=== PATIENT | female | born 1950 | race Caucasian/White ===

== ENCOUNTER 2019-12-29 23:14 | Inpatient (IN) | payer OTHER, BC ==
--- OUTSIDE RECORDS SUMMARY | 2019-12-29 23:39 | XMS ---
:1950 [facility] Support Name Relationship Address Phone RE Unavailable Unavailable Unavailable KYA OMALLEY [place] [address] FLACA PARIKH DAUGHTER [address] [place] [address] Re-disclosure Warning The records that you are about to access may contain information from federally- assisted alcohol or drug abuse programs. If such information is present, then the following federally mandated warning applies: This information has been disclosed to you from records protected by federal confidentiality rules (42 CFR part 2). The federal rules prohibit you from making any further disclosure of this information unless further disclosure is expressly permitted by the written consent of the person to whom it pertains or as otherwise permitted by 42 CFR part 2. A general authorization for the release of medical or other information is NOT sufficient for this purpose. The Federal rules restrict any use of the information to criminally investigate or prosecute any alcohol or drug abuse patient.The records that you are about to access may contain highly sensitive health information, the redisclosure of which is protected by Article 27-F of the [facility] Public Health law. If you continue you may haveaccess to information: Regarding HIV / AIDS; Provided by facilities licensed or operated by the [facility] Office of Mental Health; or Provided by the [facility] Office for People With Developmental Disabilities. If such information is present, then the following [facility] mandated warning applies: This information has been disclosed to you from confidential records which are protected by state law. State law prohibits you from making any further disclosure of this information without the specific written consent of the person to whom it pertains, or as otherwise permitted by law. Any unauthorized further disclosure in violation of state law may result in a fine or long-term sentence or both. A general authorization for the release of medical or other information is NOT sufficient authorization for further disclosure. Insurance Providers Payer name Policy type Policy ID Covered Covered constitution party's Policy P ming / Coverage constitution party ID relationship to [employer] type mason MEDICARE [id number] SP [id number] PPO [id number] SP [id number] MEDICARE [id number] SP [id number] A EMPIRE PLAN [id number] ([facility]) [place] MEDICARE [id number] 1 [id number] PART B [facility]
[2019-12-29] MEDS ORDERED: SODIUM CHLORIDE 1,000 ML IV SCH (23:45)
[2019-12-30 00:32] LABS: BASO % 0.5 % (0-2.0); EOS % 4.2 % (0-4.5); HEMATOCRIT 40.9 % (32.4-45.2); LYMPH % 34.3 % (8-40); MCH 31.5 pg (25.7-33.7); MCHC 34.2 g/dl (32.0-36.0); MEAN CELL VOLUME 92.2 fl (80-96); MEAN PLT VOLUME 10.1 fl (7.5-11.1); MONO % 9.6 % (3.8-10.2); NEUT % 51.4 % (42.8-82.8); PLATELET COUNT 202 K/MM3 (134-434); RBC 4.43 M/mm3 (3.60-5.2)
[2019-12-30 00:38] LABS: INR 1.03 (0.83-1.09); PROTHROMBIN TIME (PATIENT) 12.5 SEC (9.7-13.0)
[2019-12-30 00:41] LABS: ACTIVATED PTT 30.4 SECONDS (25.2-36.5)
[2019-12-30 01:02] LABS: ALBUMIN 3.7 g/dl (3.4-5.0); ALK PHOS 87 U/L (45-117); ANION GAP 7 MMOL/L (8-16); BILIRUBIN,TOTAL 0.3 mg/dL (0.2-1); BLOOD UREA NITROGEN 20.8 mg/dL (7-18); CALCIUM 9.4 mg/dL (8.5-10.1); CHLORIDE 99 mmol/L (98-107); CHOLESTEROL 151 mg/dL (50-200); CO2 29 mmol/L (21-32); CREATININE 1.5 mg/dL (0.55-1.3); HDL CHOLESTEROL 48 mg/dL (40-60); LDL CHOLESTEROL (ONLY SJRH) 72 mg/dL (5-100); SGOT/AST 30 U/L (15-37); SGPT/ALT 39 U/L (13-61); SODIUM 134 mmol/L (136-145); TRIGLYCERIDES 232 mg/dL (0-150)
--- NOTE | 2019-12-30 01:19 | PDOC ---
History of Present Illness - General Chief Complaint: Facial Droop Stated Complaint: SOB - History of Present Illness Initial Comments: 12/30/19 01:19 HPI: 69 y/o F with hx of uterine cancer s/p hysterectomy, CAD s/p 2 stents, HTN, HLD, DM presenting with facial droop. Patient reported transient episode of dizziness where she felt unstable on her feet around noon that self resolved; she denied fall, syncope, head trauma, change in vision. Around 8pm she reported worsneing SOB than her baseline SOB and noted a left sided facial droop. She was eventu ally brought to the ER for eval because family noted her speech was slurred. She denies any other weakness, chest pain, VILLAGOMEZ, abd pain, n/v, numbness/tingling, dysuria. She remains ambulatory. PMHx: as noted above ROS: as noted SHx: Denies tobacco use; no alcohol use; no rec drugs Allergies: NKDA ROS: GENERAL/CONSTITUTIONAL: No fever or chills. No weakness. HEAD, EYES, EARS, NOSE AND THROAT: No change in vision. No ear pain or discharge. No sore throat. CARDIOVASCULAR: No chest pain;+ shortness of breath RESPIRATORY: No cough, wheezing, or hemoptysis. GASTROINTESTINAL: No nausea, vomiting, diarrhea or constipation. GENITOURINARY: No dysuria, frequency, or change in urination. MUSCULOSKELETAL: No joint or muscle swelling or pain. No neck or back pain. SKIN: No rash NEUROLOGIC: No headache, loss of consciousness, or change in strength/sensation. ENDOCRINE: No increased thirst. No abnormal weight change HEMATOLOGIC/LYMPHATIC: No anemia, easy bleeding, or history of blood clots. ALLERGIC/IMMUNOLOGIC: No hives or skin allergy. PE: GENERAL: Awake, alert, and fully oriented, no acute distress HEAD: No signs of trauma, normocephalic, atraumatic, left nasolabial droop EYES: EOMI, sclera anicteric, conjunctiva clear ENT: Auricles normal inspection, hearing grossly normal, nares patent, oropharynx clear without exudates. Moist mucosa NECK: Normal ROM, no lymphadenopathy LUNGS: No increased work of breathing, symmetrical chest rise, clear to auscultation bilaterally, no wheezes, crackles or rhonchi HEART: Regular rate, regular rhythm, normal S1 and S2, no murmur, peripheral pulses 2+ and equal bilaterally. ABDOMEN: Soft, nondistended, nontender. No guarding, no rebound. No masses. No CVAT MUSCULOSKELETAL: FROM NEUROLOGICAL: Cranial nerves II through XII grossly intact. Normal speech, stable gait, left ankle dorsiflexion and plantarflexion 4/5str, 4/5 str on hip flexion SKIN: Warm, Dry, normal turgor, no rashes or lesions noted tPA Exclusion checklist 3-4.5h - Time Elapsed Date last known well: 12/29/19 Time last known well: 20:00 Elaspsed time: Day(s) and 5 Hour(s) and 57 Minutes - Thrombolytic Therapy Candidate Is patient eligible for thrombolytic therapy: No - Exclusion Criteria 3-4.5 hr SBP greater than 185 or DBP greater than 110mmHg despite tx: No Active internal bleeding: No Symptoms suggest subarachnoid hemorrhage: No - Relative Exclusion Criteria 3-4.5 hr Stroke severity too mild (non-disabling): Yes - Add'l Relative Exclusion 3-4.5 hr Taking an oral anticoagulant regardless of INR: Yes - Ineligibility reason(s) Reasons No tPA given: Outside of window - delayed arrival NIH Stroke Scale - Last Known Well Date/Time & Onset Date Last Known Well: 12/29/19 Time Last Known Well: 20:00 - Initial Evaluation Level of consciousness: Alert Ask patient the month and their age: Answers both correctly Ask patient to open & close eyes; make fist and let go: Obeys both correctly Best gaze (horizontal eye movement): Normal Visual field testing: No visual field loss Facial paresis (Show teeth/raise eyebrows/close eyes tight): Minor paralysis (flattened nasolabial fold, asymmetry on smiling) Motor Function: Left Arm: Normal Motor Function: Right Arm: Normal (extends arm 90 (or 45) degrees for 10 seconds without drift Motor Function: Left Leg: Drift Motor Function: Right Leg: Normal (extends leg 30 degrees for 5 seconds without drift) Limb Ataxia: No ataxia Sensory(Use pinprick test arms,legs,trunk,face/side to side): Normal Best language (Describe picture, name items, read sentences): No Aphasia Dysarthria (read several words): Normal articulation Extinction and Inattention: No abnormality - Total Score NIH Stroke Scale Score: 2 Past History - Medical History Allergies/Adverse Reactions: Allergies Allergy/AdvReac Type Severity Reaction Status Date / Time No Known Drug Allergies Allergy Verified 05/19/15 18:27 Home Medications: Ambulatory Orders Atorvastatin Ca [Lipitor] 40 mg PO DAILY 12/12/11 Diltiazem HCl [Cartia Xt] 240 mg PO DAILY 12/12/11 Glimepiride 4 mg PO DAILY 12/12/11 Levothyroxine [Synthroid -] 125 mcg PO DAILY 12/12/11 Apixaban [Eliquis] 5 mg PO BID 12/30/19 Dronedarone HCl [Multaq] 400 mg PO BID 12/30/19 Metoprolol Tartrate [Lopressor -] 50 mg PO HS 12/30/19 Sitagliptin Phosphate [Januvia] 100 mg PO HS 12/30/19 Anemia: No Asthma: No Cancer: Yes (UTERINE) Cardiac Disorders: Yes (CAD-STENTED X 2) CVA: No COPD: No CHF: No Dementia: No Diabetes: Yes (NIDDM DX 2006) GI Disorders: No Disorders: No HTN: Yes (DX 1999) Hypercholesterolemia: Yes (DX 1999) Liver Disease: No Seizures: No Thyroid Disease: Yes (HYPOTHYROID-DX 2006) - Surgical History Abdominal Surgery: No Appendectomy: No Cardiac Surgery: Yes (STENTS X 2-2006) Cholecystectomy: No Lung Surgery: No Neurologic Surgery: No Orthopedic Surgery: Yes (Bilateral Knee Arthroscopy) - Psycho-Social/Smoking History Smoking Status: No Smoking History: Former smoker Have you smoked in the past 12 months: No Number of Cigarettes Smoked Daily: 0 If you are a former smoker, when did you quit?: 1989 Information on smoking cessation initiated: No - Substance Abuse Hx (Audit-C & DAST Scrn) How often the patient has a drink containing alcohol: Never Score: In Men: 4 or > Positive; In Women: 3 or > Positive: 0 Screen Result (Pos requires Nsg. Audit-10AR): Negative In the last yr the pt used illegal drug/Rx for NonMed reason: No Score: Yes response is considered Positive: 0 Screen Result (Positive result requires Nsg. DAST-10): Negative *Physical Exam - Vital Signs Last Vital Signs Temp Pulse Resp BP Pulse Ox 97.8 F 80 19 128/92 97 12/29/19 23:15 12/29/19 23:15 12/29/19 23:15 12/29/19 23:15 12/30/19 00:43 ED Treatment Course - LABORATORY CBC & Chemistry Diagram: 12/30/19 00:03 12/30/19 00:03 - ADDITIONAL ORDERS Additional order review: Laboratory Results 12/30/19 12/30/19 12/30/19 00:03 00:03 00:03 PT with INR INR PTT (Actin FS) Sodium 134 L Potassium 5.0 Chloride 99 Carbon Dioxide 29 Anion Gap 7 L BUN 20.8 H Creatinine 1.5 H Est GFR (CKD-EPI)AfAm 40.49 Est GFR (CKD-EPI)NonAf 34.93 Calcium 9.4 Total Bilirubin 0.3 AST 30 ALT 39 Alkaline Phosphatase 87 Creatine Kinase 58 Troponin I < 0.02 Total Protein 7.0 Albumin 3.7 Triglycerides 232 H Cancelled Cholesterol 151 Cancelled Total LDL Cholesterol 72 Cancelled HDL Cholesterol 48 Cancelled Blood Type O POSITIVE Antibody Screen Negative 12/30/19 00:03 PT with INR 12.50 INR 1.03 PTT (Actin FS) 30.4 Sodium Potassium Chloride Carbon Dioxide Anion Gap BUN Creatinine Est GFR (CKD-EPI)AfAm Est GFR (CKD-EPI)NonAf Calcium Total Bilirubin AST ALT Alkaline Phosphatase Creatine Kinase Troponin I Total Protein Albumin Triglycerides Cholesterol Total LDL Cholesterol HDL Cholesterol Blood Type Antibody Screen 12/30/19 00:03 RBC 4.43 MCV 92.2 MCHC 34.2 RDW 13.0 MPV 10.1 D Neutrophils % 51.4 Lymphocytes % 34.3 Monocytes % 9.6 Eosinophils % 4.2 Basophils % 0.5 Medical Decision Making - Medical Decision Making 12/30/19 02:53 69 y/o F with hx of uterine cancer s/p hysterectomy, CAD s/p 2 stents, HTN, HLD, DM presenting with facial droop and slurred speech following gait instability earlier in the day. VSS, AF. PE with left nasolabial flattening and left hip flexion 4/5 str, ankle plantarflexion and dorsifelxion 4/5. NIHSS 2 -code villalobos order set -ivf -neuro consult -will admit 12/30/19 02:55 cr 1.5 ua notable for uti; will treat with ceftr neuro consult sent but no response yet pending admit for further workup Discharge - Discharge Information Problems reviewed: Yes Clinical Impression/Diagnosis: CVA (cerebral vascular accident), UTI (urinary tract infection) Condition: Guarded - Admission Yes - Follow up/Referral Referrals: Maximo Rios MD [Primary Care Provider] - - Patient Discharge Instructions - Post Discharge Activity
[2019-12-30 01:24] LABS: GLUCOSE,RANDOM 433 mg/dL (74-106)
[2019-12-30 01:52] LABS: EPI CELLS 1 /uL (0-25.1); HYALINE CASTS 0 /uL (0-3.1); URINE APPEARANCE CLEAR; URINE BACTERIA >9,000 /uL (0-1359); URINE BILIRUBIN NEGATIVE (NEGATIVE); URINE COLOR YELLOW; URINE GLUCOSE (UA) 3+ (NEGATIVE); URINE KETONE NEGATIVE (NEGATIVE); URINE LEUK ESTERASE 1+ (NEGATIVE); URINE NITRITE POSITIVE (NEGATIVE); URINE PROTEIN NEGATIVE (NEGATIVE); URINE RBC 4 /uL (0-23.9); URINE UROBILINOGEN 0.2 mg/dL (0.2-1.0); URINE WBC 343 /uL (0-25.8)
[2019-12-30] MEDS ORDERED: CEFTRIAXONE 1 GM in DEXTROSE 5%-WATER - 100 ML IVPB ONE (01:53)
[2019-12-30] MEDS ORDERED: CEFTRIAXONE 1 GM/50 ML BAG ONE ×2 (02:33→09:20)
--- NOTE | 2019-12-30 02:54 | PDOC ---
Attending Attestation - Resident Resident Name: Bessy Hatch - ED Attending Attestation I have performed the following: I have examined & evaluated the patient, The case was reviewed & discussed with the resident, I agree w/resident's findings & plan, Exceptions are as noted - HPI HPI: 12/30/19 02:48 69F pmh DM, HTN, HLD, CAD s/p stent, chf, AFib on eliquis here after noticing facial droop, speech and gait abnormalities. Pt was in her USOH until noon when she had a self-limited episode of gait instability. Also, at approximately 8pm tonight, she noted a change in her voice but was unconcerned with what she saw when she checked herself in the mirror for droop. At 9pm when her daughter arrived home, daughter noted L sided droop and a change in voice, ems was called. - Physicial Exam PE: 12/30/19 02:50 Agree with documented exam - Medical Decision Making 12/30/19 02:52 Focal findings concerning for CVA, code hernandez called CT w/o acute findings Questionable timing for symptom onset, on Eliquis, not tpa candidate f/u labs, cxr, ekg admit for complete stroke eval Discharge - Discharge Information Problems reviewed: Yes Clinical Impression/Diagnosis: CVA (cerebral vascular accident), UTI (urinary tract infection) Condition: Guarded - Follow up/Referral Referrals: Maximo Rios MD [Primary Care Provider] - - Patient Discharge Instructions - Post Discharge Activity
--- NOTE | 2019-12-30 03:38 | PN ---
Teaching Attending Note Name of Resident: Debbie Silvestre ATTENDING PHYSICIAN STATEMENT I saw and evaluated the patient. I reviewed the resident's note and discussed the case with the resident. I agree with the resident's findings and plan as documented. SUBJECTIVE: Patient is 69 year old man with a PMH of Afib (on Eliquis), Uterine cancer (s/p hysterectomy), Hypothyroidism, CAD (s/p 2 stents), HTN, HLD and NIDDM presenting with facial droop. Patient reported transient episode of dizziness where she felt unstable on her feet around noon that self resolved. She report worsneing SOB around 8 pm more than her baseline SOB and noted a left sided facial droop. She was eventually brought to the ER for evaluation because family noted her sp eech was slurred. Patient denies fall, syncope, head trauma, change in vision, chest pain, abdominal pain, headache, palpitations, fever, chills, nausea, vomiting, diarrhea, constipation, dysuria, frequency, urgency, melena, hematochezia or hematuria. She remains ambulatory. Former smoker. Denies alcohol, tobacco or illicit drug use. No sick contacts or recent travels. 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 Patient has a family history of heart disease in her brother. OBJECTIVE: Alert Vital Signs Period Temp Pulse Resp BP Sys/Strauss Pulse Ox Last 24 Hr 97.8 F 80 19 128/92 97-97 HEENT: No Jaundice, eye redness or discharge, PERRLA, EOMI. Left facial droop; dysarthric; Normocephalic, atraumatic. External ears are normal and hearing is grossly intact. No nasal discharge. Neck: Supple, nontender. No palpable adenopathy or thyromegaly. No JVD Chest: Good effort. Clear to auscultation and percussion. Heart: Irregularly irregular. No S3, rub or murmur Abdomen: Not distended, soft, nontender and no HSM. No rebound or guarding. Normal bowel sounds. Ext: Peripheral pulses intact. No leg edema. Skin: Warm and dry. No petechiae, rash or ecchymosis. Neuro: Alert. Oriented x3. Left facial droop; dysarthria; Sensation grossly intact in all four extremities and DTR are symmetric. Psych: Appropriate mood and affect. Good insight. Home Medications Medication Instructions Recorded Atorvastatin Ca [Lipitor] 40 mg PO HS 12/12/11 Diltiazem HCl [Cartia Xt] 120 mg PO DAILY 12/12/11 Glimepiride 10 mg PO BID 12/12/11 Levothyroxine [Synthroid -] 125 mcg PO DAILY 12/12/11 Apixaban [Eliquis] 5 mg PO BID 12/30/19 Dronedarone HCl [Multaq] 400 mg PO BID 12/30/19 Metoprolol Tartrate [Lopressor -] 50 mg PO HS 12/30/19 Sitagliptin Phosphate [Januvia] 100 mg PO HS 12/30/19 Abnormal Lab Results 12/30/19 12/30/19 00:03 01:05 Sodium 134 L Anion Gap 7 L BUN 20.8 H Creatinine 1.5 H Random Glucose 433 H* Triglycerides 232 H Urine Glucose (UA) 3+ H Urine Nitrite Positive H Ur Leukocyte Esterase 1+ H Current Medications Generic Name Dose Route Start Last Admin Trade Name Freq PRN Reason Stop Dose Admin Apixaban 5 mg 12/30/19 04:59 Eliquis - PO 12/30/19 05:00 ONCE ONE Apixaban 5 mg 12/30/19 22:00 Eliquis - PO BID [facility] Aspirin 325 mg 12/30/19 05:09 Asa - PO 12/30/19 05:10 ONCE ONE Atorvastatin Calcium 80 mg 12/30/19 22:00 Lipitor - PO HS [facility] Dronedarone 400 mg 12/30/19 10:00 Multaq - PO BID [facility] Sodium Chloride 1,000 mls @ 50 mls/hr 12/30/19 04:55 Normal Saline - IV ASDIR [facility] ASSESSMENT AND PLAN: 1. UTI/Rule out CVA - Sepsis workup done and on IV Ceftriaxone and IV NS. NIHSS score was 2. CXR shows cardiomegaly with left humerus hardware. No evidence of acute intracranial pathology on noncontrast head CT scan. Outside of window for tPA and on Eliquis. EKG shows Afib at 65/minute, premature SVCs and QTc 453, flat T waves in aVL, V2, V3 and T wave inversion in V1 with no significant acute ischemic ST changes. T wave flattening is new compared to prior EKG. Initial troponin is negative. Will admit to telemetry, repeat troponin & EKG, get ECHO, TSH, carotid doppler, increase Lipitor to 80 mg qd, continue Aspirin, get brain MRI, do speech and swallow evaluation, neurochecks and implement fall/aspiration/seizure precautions. Consult PT/Neurology. Hyponatremia likely partly due to hyperglycemia. Will limit free water intake and correct hyperglycemia. Viral testing for COVID-19 ordered and patient placed on airborne, droplet and contact isolation. Will continue comprehensive care for all of patients comorbid con ditions. 2. Uncontrolled DM For now, we will hold the home diabetes drugs and implement sliding scale insulin regimen. Provide comprehensive diabetes care with patient teaching and counseling about the importance of adherence to prescribed diabetes regimen, euglycemia, eye care and foot care. 3. OTILIO Likely due to dehydration. Will get kidney sonogram, urine protein/creatinine ratio, hydrate gently, monitor urine output and consult Nephrology. Should be on an ACEI or ARB. Avoid nephrotoxic agents such as NSAIDS, aminoglycosides, contrast dyes and certain Alternative medicine products. 4. Obesity Counseled on the risks associated with obesity. Will provide patient all the necessary assistance, counseling and positive reinforcement to facilitate weight loss. Consult rug setter velvet. 5. Hypertension Will allow permissive hypertension for 24 to 48 hours. Will restart suitable outpatient antihypertensive drugs when clinically appropriate. Subsequently, will revise regimen to ensure [id number] excellent BP control. Patient counseled on the injurious effects of uncontrolled hypertension. Nonpharmacologic measures to control hypertension like weight loss, salt restriction and exercise stressed. Importance of adherence to treatment regimen and attainment of normotension emphasized. 6. DVT prophylaxis - Continue Eliquis. 7. Advance directives - Full code
[2019-12-30] MEDS ORDERED: APIXABAN 5 MG TABLET PO SCH (04:57)
[2019-12-30] MEDS ORDERED: APIXABAN 5 MG TABLET PO ONE (04:59)
[2019-12-30] MEDS ORDERED: ASPIRIN 81 MG CHEWABLE TABLETS PO SCH (05:06)
[2019-12-30] MEDS ORDERED: ASPIRIN 81 MG CHEWABLE TABLETS PO ONE (05:09)
--- NOTE | 2019-12-30 05:37 | HP ---
CHIEF COMPLAINT: facial droop HISTORY OF PRESENT ILLNESS: Nayana Siddiqui is a 69 year old woman with PMH afib on eliquis 5 bid, CAD s/p 2 stents, hypertension, hyperlipidemia, diabetes, hypothyroidism, who is presenting with facial droop and difficulty speaking. She states that symptoms began yesterday at 11 am while she was grocery shopping. States she was walking down the aisles and noticed her body drifting to the left side. She also felt dizzy, and lightheaded, and immediately left the store to go home and rest. Symptoms resolved while she was at home. However, at approx 8 pm, she noticed she was having some trouble speaking. Her daughter arrived home from work at 9 pm and immediately noticed her mom slurring words and with a left facial droop. She denies prior TIA, CVA. States she has been compliant with all medications. Denies fever, chills, headache, chest pain, palpitations, nausea, vomiting, dysuria, diarrhea, constipation. ER course was notable for: - T 98.3, HR 80, BP 155/80, RR 18, O2 sat 97% on room air - Labs notable for Creatinine 1.5, BUN 20.8, Glucose 433, triglycerides 232 - CT head negative for acute pathology - UA with 3+ glucose, positive nitrite, positive leuk esterase, >9000 bacteria PAST MEDICAL HISTORY: Afib on Eliquis 5 mg BID CAD s/p stent placement 10 y ago Hypertension Hyperlipidemia NIDDM Hypothyroidism Uterine cancer s/p hysterectomy PAST SURGICAL HISTORY: Meniscal repair b/l L shoulder reconstruction Hysterectomy Social History: Smoking: prior smoker ~age [age] Alcohol: no Drugs: no Allergies No Known Drug Allergies Allergy (Verified 05/19/15 18:27) HOME MEDICATIONS: Home Medications Medication Instructions Recorded Atorvastatin Ca [Lipitor] 40 mg PO HS 12/12/11 Diltiazem HCl [Cartia Xt] 120 mg PO DAILY 12/12/11 Glimepiride 10 mg PO BID 12/12/11 Levothyroxine [Synthroid -] 125 mcg PO DAILY 12/12/11 Apixaban [Eliquis] 5 mg PO BID 12/30/19 Dronedarone HCl [Multaq] 400 mg PO BID 12/30/19 Metoprolol Tartrate [Lopressor -] 50 mg PO HS 12/30/19 Sitagliptin Phosphate [Januvia] 100 mg PO HS 12/30/19 REVIEW OF SYSTEMS SEE HPI PHYSICAL EXAMINATION Vital Signs - 24 hr 12/29/19 12/30/19 23:15 00:43 Temperature 97.8 F Pulse Rate 80 Respiratory 19 Rate Blood Pressure 128/92 O2 Sat by Pulse 97 97 Oximetry (%) GENERAL: Awake, alert, and fully oriented, in no acute distress. HEAD: Normal with no signs of trauma. EYES: Pupils equal, round and reactive to light, extraocular movements intact EARS, NOSE, THROAT: Ears normal, nares patent, oropharynx clear without exudates. Moist mucous membranes. NECK: Normal range of motion, supple without lymphadenopathy LUNGS: Breath sounds equal, clear to auscultation bilaterally. HEART: Irregularly irregular rhythm, normal rate, no murmur ABDOMEN: Soft, nontender, not distended, normoactive bowel sounds, no guarding, no rebound, no masses. MUSCULOSKELETAL: Normal range of motion at all joints. No bony deformities or tenderness. No CVA tenderness. UPPER EXTREMITIES: 2+ pulses, warm, well-perfused. No cyanosis. No clubbing. No peripheral edema. 4/5 strength b/l LOWER EXTREMITIES: 2+ pulses, warm, well-perfused. No calf tenderness. No peripheral edema. 4/5 strength b/l NEUROLOGICAL: Alert and oriented to person, place, time. Positive for dysarthria with asymmetrical face (L sided facial droop with flattening of the nasolabial fold on the left) PSYCHIATRIC: Cooperative. Good eye contact. Appropriate mood and affect. Laboratory Results - last 24 hr 12/30/19 12/30/19 12/30/19 00:03 00:03 00:03 WBC 8.0 RBC 4.43 Hgb 14.0 Hct 40.9 MCV 92.2 MCH 31.5 MCHC 34.2 RDW 13.0 Plt Count 202 D MPV 10.1 D Absolute Neuts (auto) 4.1 Neutrophils % 51.4 Lymphocytes % 34.3 Monocytes % 9.6 Eosinophils % 4.2 Basophils % 0.5 Nucleated RBC % 0 PT with INR 12.50 INR 1.03 PTT (Actin FS) 30.4 Sodium Potassium Chloride Carbon Dioxide Anion Gap BUN Creatinine Est GFR (CKD-EPI)AfAm Est GFR (CKD-EPI)NonAf POC Glucometer Random Glucose Calcium Total Bilirubin AST ALT Alkaline Phosphatase Creatine Kinase Troponin I Total Protein Albumin Triglycerides Cancelled Cholesterol Cancelled Total LDL Cholesterol Cancelled HDL Cholesterol Cancelled Urine Color Urine Appearance Urine pH Ur Specific [place] Urine Protein Urine Glucose (UA) Urine Ketones Urine Blood Urine Nitrite Urine Bilirubin Urine Urobilinogen Ur Leukocyte Esterase Urine WBC (Auto) Urine RBC (Auto) Urine Casts (Auto) U Epithel Cells (Auto) Urine Bacteria (Auto) Blood Type Antibody Screen 12/30/19 12/30/19 12/30/19 00:03 00:03 01:05 WBC RBC Hgb Hct MCV MCH MCHC RDW Plt Count MPV Absolute Neuts (auto) Neutrophils % Lymphocytes % Monocytes % Eosinophils % Basophils % Nucleated RBC % PT with INR INR PTT (Actin FS) Sodium 134 L Potassium 5.0 Chloride 99 Carbon Dioxide 29 Anion Gap 7 L BUN 20.8 H Creatinine 1.5 H Est GFR (CKD-EPI)AfAm 40.49 Est GFR (CKD-EPI)NonAf 34.93 POC Glucometer Random Glucose 433 H* Calcium 9.4 Total Bilirubin 0.3 AST 30 ALT 39 Alkaline Phosphatase 87 Creatine Kinase 58 Troponin I < 0.02 Total Protein 7.0 Albumin 3.7 Triglycerides 232 H Cholesterol 151 Total LDL Cholesterol 72 HDL Cholesterol 48 Urine Color Yellow Urine Appearance Clear Urine pH 6.0 Ur Specific [place] 1.014 Urine Protein Negative Urine Glucose (UA) 3+ H Urine Ketones Negative Urine Blood Negative Urine Nitrite Positive H Urine Bilirubin Negative Urine Urobilinogen 0.2 Ur Leukocyte Esterase 1+ H Urine WBC (Auto) 343 Urine RBC (Auto) 4 Urine Casts (Auto) 0 U Epithel Cells (Auto) 1 Urine Bacteria (Auto) >9,000 Blood Type O POSITIVE Antibody Screen Negative 12/30/19 03:28 WBC RBC Hgb Hct MCV MCH MCHC RDW Plt Count MPV Absolute Neuts (auto) Neutrophils % Lymphocytes % Monocytes % Eosinophils % Basophils % Nucleated RBC % PT with INR INR PTT (Actin FS) Sodium Potassium Chloride Carbon Dioxide Anion Gap BUN Creatinine Est GFR (CKD-EPI)AfAm Est GFR (CKD-EPI)NonAf POC Glucometer 285 Random Glucose Calcium Total Bilirubin AST ALT Alkaline Phosphatase Creatine Kinase Troponin I Total Protein Albumin Triglycerides Cholesterol Total LDL Cholesterol HDL Cholesterol Urine Color Urine Appearance Urine pH Ur Specific [place] Urine Protein Urine Glucose (UA) Urine Ketones Urine Blood Urine Nitrite Urine Bilirubin Urine Urobilinogen Ur Leukocyte Esterase Urine WBC (Auto) Urine RBC (Auto) Urine Casts (Auto) U Epithel Cells (Auto) Urine Bacteria (Auto) Blood Type Antibody Screen ASSESSMENT/PLAN: Nayana Siddiqui is a 69 year old woman with PMH afib on eliquis 5 bid, CAD s/p 2 stents, hypertension, hyperlipidemia, diabetes, hypothyroidism, who is presenting with facial droop and difficulty speaking with strong suspicion of CVA #Suspected CVA - Last known well: 11 am 12/29/19 - NIHSS stroke scale 2 on admission (facial palsy and dysarthria) - CT head negative for acute pathology - MRI w/out contrast stat - Speech/swallow eval - Lipitor 80 daily - Aspirin 325 one time does - F/u ECHO - F/u TSH - Neuro consult - PT consult #OTILIO - bun 20.8, cr 1.5 - Likely secondary to polydipsia and polyuria in the setting of hyperglycemia - Continue iv fluids - F/u urine protein:cr ratio #UTI - F/u urine culture - Continue Rocephin #Afib - Continue home Eliquis 5 mg bid - Continue home Dronedarone 400 bid - F/u EKG; new t wave flattening detected on first ekg - F/u cardiology recommendations #Hyperglycemia with NIDDM - Blood sugar 433 on admission - Continue fluids 0.9 NS 50 mls/hr - BGM - SSI - F/u urine protein creatinine ratio - F/u HbA1c - Consider addition of LISA/ARB in this diabetic pt upon discharge DVT prophylaxis: Eliquis 5 mg bid FEN - 0.9 NS @ 50 mls/hr - F/u am labs, mag, phos - Diet pending swallow eval Dispo: Tele Family Medical History Family History: As Documented Visit type - Medication Review Med list reviewed for High Risk Meds patients 65 and older: Yes - Emergency Visit Emergency Visit: Yes Care time: The patient presented to the Emergency Department on the above date and was hospitalized for further evaluation of their emergent condition. - New Patient This patient is new to me today: Yes Date on this admission: 12/30/19 - Critical Care Critical Care patient: No ATTENDING PHYSICIAN STATEMENT I saw and evaluated the patient. I reviewed the resident's note and discussed the case with the resident. I agree with the resident's findings and plan as documented. SUBJECTIVE: OBJECTIVE: ASSESSMENT AND PLAN:
[2019-12-30] MEDS ORDERED: ASPIRIN 325 MG ENTERIC COATED TABLET (FP) ONE (06:00)
[2019-12-30] MEDS ORDERED: APIXABAN 5 MG TABLET ONE (06:00)
[2019-12-30] MEDS ORDERED: INSULIN SLIDING SCALE (NOVOLOG) 1 VIAL SQ ONE (06:00)
[2019-12-30] MEDS: INSULIN SLIDING SCALE (NOVOLOG) 1 VIAL SQ SCH ×5 (06:13→21:44)
[2019-12-30] MEDS: SODIUM CHLORIDE 1,000 ML IV SCH (06:13)
[2019-12-30 06:42] LABS: BASO % 0.6 % (0-2.0); EOS % 3.7 % (0-4.5); HEMATOCRIT 39.1 % (32.4-45.2); HEMOGLOBIN 13.2 GM/dL (10.7-15.3); LYMPH % 31.7 % (8-40); MCH 30.6 pg (25.7-33.7); MCHC 33.7 g/dl (32.0-36.0); MEAN CELL VOLUME 90.8 fl (80-96); MEAN PLT VOLUME 9.6 fl (7.5-11.1); MONO % 9.9 % (3.8-10.2); NEUT % 54.1 % (42.8-82.8); PLATELET COUNT 197 K/MM3 (134-434); RBC 4.31 M/mm3 (3.60-5.2); RDW 12.9 % (11.6-15.6); WHITE BLOOD COUNT 7.5 K/mm3 (4.0-10.0)
[2019-12-30 07:17] LABS: ALBUMIN 3.5 g/dl (3.4-5.0); BILIRUBIN,TOTAL 0.8 mg/dL (0.2-1); BLOOD UREA NITROGEN 17.2 mg/dL (7-18); CREATININE 1.2 mg/dL (0.55-1.3); PHOSPHOROUS 3.3 mg/dL (2.5-4.9); POTASSIUM 4.5 mmol/L (3.5-5.1); TOT PROT 6.8 g/dl (6.4-8.2)
[2019-12-30 08:20] LABS: CREATININE, URINE RANDOM < 13.0 mg/dL (30-150)
--- OUTSIDE RECORDS SUMMARY | 2019-12-30 08:37 | XMS ---
:1950 Author Organization [facility] Support Name Relationship Address Phone RE, RETIRED Unavailable Unavailable Unavailable RE Unavailable Unavailable Unavailable KYA [place] [address] [address] FLACA PARIKH DAUGHTER [address] [phone] [place] [address] Re-disclosure Warning The records that you are [...] is protected by Article 27-F of the [facility] Public Health law. If you continue you may haveaccess to information: Regarding HIV / AIDS; Provided by facilities licensed or operated by the [facility] Office of Mental Health; or Provided by the [facility] Office for People With Developmental Disabilities. If such information is present, then the following [facility] mandated warning applies: This information has [...] law may result in a fine or longterm sentence or both. A general authorization for the release of medical or other information is NOT sufficient authorization for further disclosure. Insurance Providers Payer name Policy type Policy ID Covered Covered libertarian's Policy P ming / Coverage libertarian ID relationship to [employer] type [facility] MEDICARE [id number] SP [id number] PPO [id number] MEDICARE [id number] SP [id number] A EMPIRE PLAN [id number] ([facility]) [place] MEDICARE [id number] 1 [id number] PART B [facility]
--- NOTE | 2019-12-30 08:56 | CON.CARD ---
Consult Consult Specialty:: Cardiology Referred by:: Hospitalist Medicine Reason for Consultation:: Acute stroke - History of Present Illness Chief Complaint: Dysarthria and left facial droop History of Present Illness: 69-year-old female with known history of coronary artery disease status post percutaneous coronary intervention stenting ([facility]O-[facility]AD 2004 report of intervention not available) negative pharmacologic Dipyridamole myocardial perfusion imaging study for myocardial ischemia/May 20, 2015 negative myocardial perfusion imaging study for myocardial ischemia/May 13, 2017negative pharmacologic Lexiscan myocardial perfusion imaging study for myocardial ischemia/August 30, 2019angina pectoris, diastolic/systolic left ventricular dysfunction with class 0 [place] Heart [employer] classification left ventricular failure (LVEF between 60-65% on echocardiography performed August 24, 2019), paroxysmal atrial fibrillation [id number] score of 5 on anticoagulation therapy with DOACs/Eliquis- antiarrhythmic therapy with Multaq- recurrent asymptomatic arrhythmia noted on extended ambulatory machine icer performed August 30, 2018-sinus bradycardia/asymptomatic, mitral valve regurgitation mild to moderate in severity on echocardiography performed May 31, 2018/mild in severity on echocardiography performed August 24, 2019, heart murmur related to aortic valve sclerosis with no evidence of aortic valve stenosis on echocardiography performed April 30, 2017/May 31, 2018/August 24, 2019, tricuspid valve regurgitation mild in severity with calculated RVSP of 31.9 mmHg on echocardiography performed May 21, 2015/RVSP of 33 mmHg on echocardiography performed May 31, 2018/RVSP of 26 mmHg on echocardiography performed August 24, 2019, hypertensive cardiovascular disease/labile blood pres sure, suo-cevuguc-ntoudmams diabetes mellitus, hypercholesterolemia, carotid atherosclerosis mild in severity on carotid Doppler study performed April 22, 2017, peripheral vascular disease insignificant on lower extremity segmental pressures/PVR study performed May 06, 2017, hypothyroidism, chronic kidney disease and degenerative joint disease who was last evaluated in the officeS2019. Since the above evaluation, she presented with left facial droop, dysarthria and transient episode of disequilibrium w/o other focal neuro deficits since resolved. She report worsneing SOB around 8 pm more than her baseline SOB, she reports compliance with Eliquis. Patient denies fall, syncope, head trauma, change in vision, chest pain, abdominal pain, headache, palpitations, fever, chills, nausea, vomiting, diarrhea, constipation, dysuria, frequency, urgency, melena, hematochezia, hematuria, orthopnea, PND or LE edema. Former smoker. Denies alcohol, tobacco or illicit drug use. No sick contacts or recent travels. 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 Patient has a family history of heart disease in her brother. 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 [employer] Home Medications - Allergies Allergies/Adverse Reactions: Allergies Allergy/AdvReac Type Severity Reaction Status Date / Time No Known Drug Allergies Allergy Verified 05/19/15 18:27 - Home Medications Home Medications: Ambulatory Orders Atorvastatin Ca [Lipitor] 40 mg PO HS 12/12/11 Diltiazem HCl [Cartia Xt] 120 mg PO DAILY 12/12/11 Glimepiride 10 mg PO BID 12/12/11 Levothyroxine [Synthroid -] 125 mcg PO DAILY 12/12/11 Apixaban [Eliquis] 5 mg PO BID 12/30/19 Dronedarone HCl [Multaq] 400 mg PO BID 12/30/19 Metoprolol Tartrate [Lopressor -] 50 mg PO HS 12/30/19 Sitagliptin Phosphate [Januvia] 100 mg PO HS 12/30/19 Review of Systems - Review of Systems Neurological: reports: Change in Speech, Dizziness, Incoordination Vital Signs: Vital Signs Temperature 98.0 F 12/30/19 05:39 Pulse Rate 85 12/30/19 05:39 Respiratory Rate 19 12/29/19 23:15 Blood Pressure 160/85 12/30/19 05:39 O2 Sat by Pulse Oximetry (%) 99 12/30/19 08:27 Constitutional: Yes: No Distress, Calm HENT: Yes: Other (Left facial droop) Neck: Yes: Supple Respiratory: Yes: Regular, CTA Bilaterally Gastrointestinal: Yes: Normal Bowel Sounds, Soft Cardiovascular: Yes: Pulse Irregular JVD: No Carotid Bruit: No Heart Sounds: Yes: S1, S2 Murmur: Yes: Systolic Murmur, Grade 1 Edema: No - Other Data Labs, Other Data: CBC, BMP 12/30/19 05:40 12/30/19 05:40 INR, PTT INR 1.03 (0.83-1.09) 12/30/19 00:03 Troponin, BNP 12/30/19 00:03 Troponin I < 0.02 Troponin, BNP 12/30/19 00:03 Troponin I < 0.02 PAF @ 90 -> NSR nonspec ST-T changes Echo: Report Reviewed Ejection Fraction %: LVEF > or = 40 % Imaging - Results Chest X-ray: Report Reviewed (NAD) MRI: Report Reviewed Problem List - Problems (1) CVA (cerebral vascular accident) Code(s): I63.9 - CEREBRAL INFARCTION, UNSPECIFIED Qualifiers: CVA mechanism: unspecified Qualified Code(s): I63.9 - Cerebral infarction, unspecified (2) UTI (urinary tract infection) Code(s): N39.0 - URINARY TRACT INFECTION, SITE NOT SPECIFIED Qualifiers: Urinary tract infection type: site unspecified Hematuria presence: without hematuria Qualified Code(s): N39.0 - Urinary tract infection, site not specified (3) CAD (coronary artery disease) Code(s): I25.10 - ATHSCL HEART DISEASE OF [place] CORONARY ARTERY W/O ANG PCTRS Qualifiers: Coronary Disease-Associated Artery/Lesion type: [place] artery [place] vs. transplanted heart: [place] heart Associated angina: without angina Qualified Code(s): I25.10 - Atherosclerotic heart disease of [place] coronary artery without angina pectoris (4) Diabetes mellitus Code(s): E11.9 - TYPE 2 DIABETES MELLITUS WITHOUT COMPLICATIONS Qualifiers: Diabetes mellitus type: type 2 Diabetes mellitus nursing home insulin use: without nursing home use Diabetes mellitus complication status: without complication Qualified Code(s): E11.9 - Type 2 diabetes mellitus without complications (5) HTN (hypertension) Code(s): I10 - ESSENTIAL (PRIMARY) HYPERTENSION Qualifiers: Hypertension type: essential hypertension Qualified Code(s): I10 - Essential (primary) hypertension (6) Hyperlipidemia Code(s): E78.5 - HYPERLIPIDEMIA, UNSPECIFIED (7) Hypothyroid Code(s): E03.9 - HYPOTHYROIDISM, UNSPECIFIED Qualifiers: Hypothyroidism type: unspecified Qualified Code(s): E03.9 - Hypothyroidism, unspecified Assessment/Plan 12/30/2019 Echo: Normal LV size and fxn LVEF 55-60%, borderline dilated LA, mild MR, TR 12/30/2019 Carotid US: No stenosis 12/30/2019 Brain MRI: Acute nonhemorrhagic right pontine stroke 12/29/2019 HCT: No acute changes Echocardiography performed August 24, 2019 revealed normal left ventricular size and systolic function with estimated LVEF between 60-65%, moderate left atrial dilatation, normal right ventricular size and systolic function, aortic valve leaflet sclerosis without leaflet restriction, mild mitral valve regurgitation, mild tricuspid valve regurgitation with calculated RVSP of 26 mmHg. Pharmacologic Lexiscan myocardial perfusion imaging study performed August 30, 2019 revealed small size anterior wall defect compatible with soft tissue attenuation/normal variant with normal left ventricular contraction pattern on LV gated analysis and calculated left ventricular ejection fraction of 77% at rest and 71% post Lexiscan infusion. Extended ambulatory machine icer performed August 30, 2018 through September 12, 2018 reveals sinus rhythm with paroxysmal atrial fibrillation. Assessment: 1.Dysarthria, disequilibrum and left facial droop referable to acute right pontine stroke 2. UTI 3. Coronary artery disease status post percutaneous coronary intervention stenting negative pharmacologic Dipyridamole myocardial perfusion imaging study for myocardial ischemia/May 20, 2015 negative myocardial perfusion imaging study for myocardial ischemia/May 13, 2017 negative pharmacologic Lexiscan myocardial perfusion imaging study for myocardial ischemia/August 30, 2019 angina pectoris. 4. Diastolic/systolic (resolved systolic left ventricular dysfunction) left ventricular dysfunction with class 0 [place] Heart Association classification left ventricular failure. 5. Paroxysmal atrial fibrillationcurrently in sinus [id number] score of 7 on chronic anticoagulation therapy with DOACs/Eliquis-antiarrhythmic therapy with Multaq- sinus bradycardia/asymptomatic-history ofrecurrent arrhythmia/asymptomatic. 6. Mitral valve regurgitation mild in severity of no clinical significance. 7. Heart murmur related to aortic valve sclerosis with no evidence of aortic valve stenosis on echocardiography performed April 30, 2017/May 31, 2018/August 24, 2019. 8. Tricuspid valve regurgitation mild in severity with calculated RVSP of 31.9 mmHg on echocardiography performed May 21, 2015/RVSP of 33 mmHg on echocardiography performed May 31, 2018/RVSP of 26 mmHg and echocardiography p erformed August 24, 2019. 9. Hypertensive cardiovascular disease, near/at goal. 10. Vfu-zhkqwan-yopptixoa diabetes mellitus. 11. Hypercholesterolemia/hypertriglyceridemia. 12. Carotid atherosclerosis mild in severity, asymptomatic. 13. Peripheral vascular disease mild in severity, asymptomatic. 14. Hypothyroidism. 15. History of chronic kidney disease with intermittent hyperkalemia. 16. History of degenerative joint disease. 17. Exogenous obesity. 18. OTILIO Plan: 1. F/u neuro and S&S evaluation 2. Patient was advised to continue above medical therapy including continuation of anticoagulation therapy indefinitely considering the above-noted [id number] score of 7, recommend addition of ASA 81 qd given stroke despite Eliquis compliance, resumption of Atacand therapy 32 mg once daily (or equivalent) with caution considering the above noted history of chronic kidney disease with intermittent hyperkalemiaand in addition emphasized to the patient importance o f compliance to therapy administration. Increased Lipitor 80 qd, continue Cartia XT 120 qd, Multaq 400 bid, Lopressor 50 qd 2. Patient and was advised to obtain periodic follow-up blood test in PMDs o ffice copy of which is to be forwarded. 3. Patient was strongly counseled dietary compliance including salt restriction/caloric restriction, increase ambulation as tolerated and weight reduction. 4. Thank you for consultative opportunity, eventual outpatient f/u with Dr. Iraheta
[2019-12-30] MEDS: ASPIRIN COATED 81 MG TABLET.EC PO SCH (09:42)
[2019-12-30] MEDS: CEFTRIAXONE 1 GM in DEXTROSE 5%-WATER - 50 ML IVPB SCH (09:43)
[2019-12-30] MEDS: DRONEDARONE HCL 400 MG TAB (FP) PO SCH ×2 (09:43→21:44)
--- NOTE | 2019-12-30 09:47 | CONSULT ---
Admitting History and Physical - Admission History of Present Illness: Per EMR- 69 year old woman with PMH afib on eliquis 5 bid, CAD s/p 2 stents, hypertension, hyperlipidemia, diabetes, hypothyroidism, who is presenting with facial droop and difficulty speaking. She states that symptoms began yesterday at 11 am while she was grocery shopping. States she was walking down the aisles and noticed her body drifting to the left side. She also felt dizzy, and lightheaded, and immediately left the store to go home and rest. Symptoms resolved while she was at home. However, at approx 8 pm, she noticed she was having some trouble speaking. Her daughter arrived home from work at 9 pm and immediately noticed her mom slurring words and with a left facial droop. She denies prior TIA, CVA. States she has been compliant with all medications. Denies fever, chills, headache, chest pain, palpitations, nausea, vomiting, dysuria, diarrhea, constipation. ER course was notable for: - T 98.3, HR 80, BP 155/80, RR 18, O2 sat 97% on room air - Labs notable for Creatinine 1.5, BUN 20.8, Glucose 433, triglycerides 232 - CT head negative for acute pathology - UA with 3+ glucose, positive nitrite, positive leuk esterase, >9000 bacteria Laboratory Tests 12/30/19 12/30/19 05:40 06:00 WBC 7.5 COVID-19 ([facility]) Pending Passed Dysphagia screen. Reg diet/thin liquids ordered. No difficulty reported or observed. Pt reports a chronic cough which she says she thinks is from her Cardiac medication. She denies h/o PNA. 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 Reduced diadochokinetic articulatory rate) - Speech Production Able to Make Needs Known: Yes: WNL Intelligibility: Yes: Mildly Impaired - Speech Characteristics Voice Loudness: Normal Voice Pitch: Yes: Normal Voice Phonatory-based Quality: Yes: Normal Speech Pattern: Normal Speech Clarity: < 100% Nasal Resonance: Normal Articulation: Yes: Imprecise (mild) Rate of Speech: Too Slow - Language/Auditory Comprehension Follows: Yes: 2 Stage Simple Commands Observation: Able to respond to yes/no queries: Yes, Yes/No Confusion: No, Comprehends Conversational Speech: Yes - Language/Verbal Expression Able to Respond to Simple Queries: Yes: WNL Able to Communicate Wants and Needs: Yes: WNL Functional Communication Status: Yes: WNL - Memory/Perception long-term Memory: Yes: WNL Short Term Memory: Yes: WNL - Swallow Evaluation/Bedside Assessment Current Nutritional Intake: Regular, Thin Liquids Oral Secretions: Yes: WFL Dentition: Yes: Adequate Facial Symmetry at Rest: Facial Droop Left (slight) Facial Symmetry on Retraction: Facial Droop Left (slight) Against Resistance Opening: Normal Against Resistance Closing: Normal Pucker Lips: Normal, Droops Left Smile: Normal, Droops Left Lingual Movement: Symmetric Lingual Speed of Movement: Reduced Lingual Movement Strgth Against Opposition: Reduced Lingual Movement Characteristics: Normal Soft Palate Description: Normal Color Hard Palate Description: Normal Color Velopharyngeal Movement: Normal Laryngeal Elevation: WFL Laryngeal Movement: Able to Palpate Rate of Intake: WFL Bolus Size: WFL Labial Seal: WFL Chewing: WFL Oral Prep Time: WFL A-P Transit: WFL Pocketing: None Timing of Swallow: WFL Coughing/Throat Clear: No Change in Voice: No Recommendations - Speech Evaluation, Impression/Plan Impression: Slight to mild LEFT facial with reduced diadochokinetic rates, with slight/mildly reduced VOM/articulatory precision. RIGHT yanni cva. Pending neurologist eval. Swallowing overtly intact. Reports chronic cough. - Dysphagia Impressions/Plan Dysphagia Impressions: Minimal Impairment, Ongoing Evaluation *Silent aspiration: cannot be R/O at bedside Dysphagia Treatment Plan: Safe Rate, Elevate HOB during feed Recommendations: Modified Barium Swallow (if cough, congestion, fever) - Recommendations Diet Consistency: Regular Medication Administration: Whole with water Liquids: Thin Liquids
--- NOTE | 2019-12-30 10:22 | PN ---
Physical Exam: SUBJECTIVE: Patient seen and examined at the bedside. She was seen ambulating to the bathroom, gait steady. She denies chest pain, denies shortness of breath, denies headaches or visual defect. OBJECTIVE: Patient is a 69 year old woman with PMH afib on eliquis 5 bid, CAD s/p 2 stents, hypertension, hyperlipidemia, diabetes, hypothyroidism, who is presenting with facial droop and difficulty speaking. She states that symptoms began 12/28 11 am while she was grocery shopping. States she was walking down the aisles and noticed her body drifting to the left side. She also felt dizzy, and lightheaded, and immediately left the store to go home and rest. Symptoms resolved while she was at home. However, at approx 8 pm, she noticed she was having some trouble speaking. Her daughter arrived home from work at 9 pm and immediately noticed her mom slurring words and with a left facial droop. She denies prior TIA, CVA. States she has been compliant with all medications. Denies fever, chills, headache, chest pain, palpitations, nausea, vomiting, dysuria, diarrhea, constipation. 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 Advised her to check her sugars and speak to PCP regarding certain devices that such as the [employer]ann[employer] Kellee that are available that minimize the checking of BGMs using her fingers.. She reports that she had left shoulder surgery at [place] with rods, but she is not sure what type of rods. Problem list: uncontrolled diabetes hypertension elevated blood sugars morbid obesity afib Hyperlipidemia Hypothyroidism Uterine cancer s/p hysterectomy Period Temp Pulse Resp BP Sys/Strauss Pulse Ox Last 24 Hr 97.8 F-98.0 F 80-85 19 128-160/85-92 97-99 GENERAL: The patient is awake, alert, and fully oriented, in no acute distress. HEAD: Normal with no signs of trauma.-mild left facial droop EYES: PERRL, extraocular movements intact, sclera anicteric, conjunctiva clear. No ptosis. ENT: Ears normal, nares patent, oropharynx clear without exudates, moist mucous membranes. NECK: Trachea midline, full range of motion, supple. LUNGS: Breath sounds equal, clear to auscultation bilaterally HEART: Regular rate and rhythm ABDOMEN: Soft, nontender, nondistended, normoactive bowel sounds EXTREMITIES: no edema, equal strength 4/5 arms, 4/5 legs NEUROLOGICAL: left mild facial droop PSYCH: Normal mood, normal affect. SKIN: mild erythema of right duncan, mild erythema of right arm Laboratory Results - last 24 hr 12/30/19 12/30/19 12/30/19 00:03 00:03 00:03 WBC 8.0 RBC 4.43 Hgb 14.0 Hct 40.9 MCV 92.2 MCH 31.5 MCHC 34.2 RDW 13.0 Plt Count 202 D MPV 10.1 D Absolute Neuts (auto) 4.1 Neutrophils % 51.4 Lymphocytes % 34.3 Monocytes % 9.6 Eosinophils % 4.2 Basophils % 0.5 Nucleated RBC % 0 PT with INR 12.50 INR 1.03 PTT (Actin FS) 30.4 Sodium Potassium Chloride Carbon Dioxide Anion Gap BUN Creatinine Est GFR (CKD-EPI)AfAm Est GFR (CKD-EPI)NonAf POC Glucometer Random Glucose Hemoglobin A1c % Calcium Phosphorus Magnesium Total Bilirubin AST ALT Alkaline Phosphatase Creatine Kinase Troponin I Total Protein Albumin Triglycerides Cancelled Cholesterol Cancelled Total LDL Cholesterol Cancelled HDL Cholesterol Cancelled TSH Urine Color Urine Appearance Urine pH Ur Specific [place] Urine Protein Urine Glucose (UA) Urine Ketones Urine Blood Urine Nitrite Urine Bilirubin Urine Urobilinogen Ur Leukocyte Esterase Urine WBC (Auto) Urine RBC (Auto) Urine Casts (Auto) U Epithel Cells (Auto) Urine Bacteria (Auto) Ur Random Creatinine U Random Total Protein Protein/Creatinin Ratio Blood Type Antibody Screen 12/30/19 12/30/19 12/30/19 00:03 00:03 01:05 WBC RBC Hgb Hct MCV MCH MCHC RDW Plt Count MPV Absolute Neuts (auto) Neutrophils % Lymphocytes % Monocytes % Eosinophils % Basophils % Nucleated RBC % PT with INR INR PTT (Actin FS) Sodium 134 L Potassium 5.0 Chloride 99 Carbon Dioxide 29 Anion Gap 7 L BUN 20.8 H Creatinine 1.5 H Est GFR (CKD-EPI)AfAm 40.49 Est GFR (CKD-EPI)NonAf 34.93 POC Glucometer Random Glucose 433 H* Hemoglobin A1c % Calcium 9.4 Phosphorus Magnesium Total Bilirubin 0.3 AST 30 ALT 39 Alkaline Phosphatase 87 Creatine Kinase 58 Troponin I < 0.02 Total Protein 7.0 Albumin 3.7 Triglycerides 232 H Cholesterol 151 Total LDL Cholesterol 72 HDL Cholesterol 48 TSH Urine Color Yellow Urine Appearance Clear Urine pH 6.0 Ur Specific [place] 1.014 Urine Protein Negative Urine Glucose (UA) 3+ H Urine Ketones Negative Urine Blood Negative Urine Nitrite Positive H Urine Bilirubin Negative Urine Urobilinogen 0.2 Ur Leukocyte Esterase 1+ H Urine WBC (Auto) 343 Urine RBC (Auto) 4 Urine Casts (Auto) 0 U Epithel Cells (Auto) 1 Urine Bacteria (Auto) >9,000 Ur Random Creatinine U Random Total Protein Protein/Creatinin Ratio Blood Type O POSITIVE Antibody Screen Negative 12/30/19 12/30/19 12/30/19 03:28 05:38 05:40 WBC 7.5 RBC 4.31 Hgb 13.2 Hct 39.1 MCV 90.8 MCH 30.6 MCHC 33.7 RDW 12.9 Plt Count 197 MPV 9.6 Absolute Neuts (auto) 4.1 Neutrophils % 54.1 Lymphocytes % 31.7 Monocytes % 9.9 Eosinophils % 3.7 Basophils % 0.6 Nucleated RBC % 0 PT with INR INR PTT (Actin FS) Sodium Potassium Chloride Carbon Dioxide Anion Gap BUN Creatinine Est GFR (CKD-EPI)AfAm Est GFR (CKD-EPI)NonAf POC Glucometer 285 252 Random Glucose Hemoglobin A1c % Calcium Phosphorus Magnesium Total Bilirubin AST ALT Alkaline Phosphatase Creatine Kinase Troponin I Total Protein Albumin Triglycerides Cholesterol Total LDL Cholesterol HDL Cholesterol TSH Urine Color Urine Appearance Urine pH Ur Specific [place] Urine Protein Urine Glucose (UA) Urine Ketones Urine Blood Urine Nitrite Urine Bilirubin Urine Urobilinogen Ur Leukocyte Esterase Urine WBC (Auto) Urine RBC (Auto) Urine Casts (Auto) U Epithel Cells (Auto) Urine Bacteria (Auto) Ur Random Creatinine U Random Total Protein Protein/Creatinin Ratio Blood Type Antibody Screen 12/30/19 12/30/19 12/30/19 05:40 05:40 05:55 WBC RBC Hgb Hct MCV MCH MCHC RDW Plt Count MPV Absolute Neuts (auto) Neutrophils % Lymphocytes % Monocytes % Eosinophils % Basophils % Nucleated RBC % PT with INR INR PTT (Actin FS) Sodium 137 Potassium 4.5 Chloride 104 Carbon Dioxide 26 Anion Gap 7 L BUN 17.2 Creatinine 1.2 Est GFR (CKD-EPI)AfAm 53.03 Est GFR (CKD-EPI)NonAf 45.75 POC Glucometer Random Glucose 252 H Hemoglobin A1c % 10.9 H Calcium 9.0 Phosphorus 3.3 Magnesium 2.0 Total Bilirubin 0.8 AST 25 ALT 35 Alkaline Phosphatase 79 Creatine Kinase Troponin I Total Protein 6.8 Albumin 3.5 Triglycerides Cholesterol Total LDL Cholesterol HDL Cholesterol TSH 4.54 H Urine Color Urine Appearance Urine pH Ur Specific [place] Urine Protein Urine Glucose (UA) Urine Ketones Urine Blood Urine Nitrite Urine Bilirubin Urine Urobilinogen Ur Leukocyte Esterase Urine WBC (Auto) Urine RBC (Auto) Urine Casts (Auto) U Epithel Cells (Auto) Urine Bacteria (Auto) Ur Random Creatinine < 13.0 L U Random Total Protein 7.2 Protein/Creatinin Ratio 0.0 Blood Type Antibody Screen Active Medications Generic Name Dose Route Start Last Admin Trade Name Freq PRN Reason Stop Dose Admin Apixaban 5 mg 12/30/19 22:00 Eliquis - PO BID YASMIN Aspirin 81 mg 12/30/19 10:00 12/30/19 09:42 Ecotrin - PO 81 mg DAILY YASMIN Administration Atorvastatin Calcium 80 mg 12/30/19 22:00 Lipitor - PO HS YASMIN Dronedarone 400 mg 12/30/19 10:00 12/30/19 09:43 Multaq - PO 400 mg BID YASMIN Administration Sodium Chloride 1,000 mls @ 50 mls/hr 12/30/19 04:55 12/30/19 06:13 Normal Saline - IV 50 mls/hr ASDIR YASMIN Administration Ceftriaxone Sodium 1 gm/ 50 mls @ 100 mls/hr 12/30/19 10:00 12/30/19 09:43 Dextrose IVPB 100 mls/hr DAILY YASMIN Administration Protocol Insulin Aspart 1 vial 12/30/19 05:14 12/30/19 07:32 Novolog Vial Sliding Scale - SQ Not Given ACHS [facility] Protocol ASSESSMENT/PLAN: Problem List - Problems (1) CVA (cerebral vascular accident) Assessment/Plan: CVA confirmed by brain MRI- acute non hemorrhagic infarct of the right yanni patient with mild left facial droop swallow evaluation monitor on tele control blood sugars, a1c 10.6 start on insulin on d/c permissive hypertension per cardiology on lipitor 80mg for elevated lipids aspirin 81mg daily neurology following physical therapy Code(s): I63.9 - CEREBRAL INFARCTION, UNSPECIFIED Qualifiers: CVA mechanism: unspecified Qualified Code(s): I63.9 - Cerebral infarction, unspecified (2) CAD (coronary artery disease) Assessment/Plan: start on high dose statin therapy Code(s): I25.10 - ATHSCL HEART DISEASE OF [place] CORONARY ARTERY W/O ANG PCTRS Qualifiers: Coronary Disease-Associated Artery/Lesion type: [place] artery [place] vs. transplanted heart: [place] heart Associated angina: without angina Qualified Code(s): I25.10 - Atherosclerotic heart disease of [place] coronary artery without angina pectoris (3) CHF (congestive heart failure) Code(s): I50.9 - HEART FAILURE, UNSPECIFIED (4) Diabetes mellitus Assessment/Plan: uncontrolled DM at 10.9% will need to start on insulin patient states she is compliant with her home medications Code(s): E11.9 - TYPE 2 DIABETES MELLITUS WITHOUT COMPLICATIONS Qualifiers: Diabetes mellitus type: type 2 Diabetes mellitus terminal make up operator insulin use: without terminal make up operator use Diabetes mellitus complication status: without complication Qualified Code(s): E11.9 - Type 2 diabetes mellitus without complications (5) HTN (hypertension) Assessment/Plan: monitor bp, allow permissive hypertension Code(s): I10 - ESSENTIAL (PRIMARY) HYPERTENSION Qualifiers: Hypertension type: essential hypertension Qualified Code(s): I10 - Essential (primary) hypertension (6) Hyperlipidemia Assessment/Plan: lipid panel reviewed start on lipitor 80mg at hs Code(s): E78.5 - HYPERLIPIDEMIA, UNSPECIFIED (7) Afib Assessment/Plan: rate controlled on eliquis 5 bid on metoprolol and cardizem cardiology following Code(s): I48.91 - UNSPECIFIED ATRIAL FIBRILLATION (8) DVT prophylaxis Assessment/Plan: pt already on eliqius Code(s): Z29.9 - ENCOUNTER FOR PROPHYLACTIC MEASURES, UNSPECIFIED Visit type - Emergency Visit Emergency Visit: Yes ED Registration Date: 12/30/19 Care time: The patient presented to the Emergency Department on the above date and was hospitalized for further evaluation of their emergent condition. - New Patient This patient is new to me today: Yes Date on this admission: 12/30/19 - Critical Care Critical Care patient: No - Discharge Referral Referred to [facility] No - Medication Review Med list reviewed for High Risk Meds patients 65 and older: Yes
--- NOTE | 2019-12-30 12:07 | ECHO ---
Version: 1 Name: VIRI PARIKH Exam: Adult Echocardiogram Study Date: 12/30/2019, 11:26 AM Age: 69 Years MMode/2D Measurements & Calculations LVOT diam: 1.66 cm Doppler Measurements & Calculations Lat Peak E' Thomas: 4.4 cm/sec Med Peak E' Thomas: 7.1 cm/sec Ao max P.6 mmHg Ao V2 max: 128.0 cm/sec Left Ventricle Left ventricular systolic function is normal. Ejection Fraction = 55-60%. Right Ventricle The right ventricle is normal in size and function. Atria The left atrium is borderline dilated. Right atrial size is normal. Not well seen. Mitral Valve There is mild to moderate mitral annular calcification. There is no mitral valve stenosis. There is mild mitral regurgitation. Tricuspid Valve The tricuspid valve is normal in structure and function. There is mild tricuspid regurgitation. Aortic Valve There is mild aortic sclerosis.;. No hemodynamically significant valvular aortic stenosis. No aortic regurgitation is present. Pulmonic Valve The pulmonic valve is not well seen, but is grossly normal. There is no pulmonic valvular stenosis. Great Vessels The aortic root is normal size. Pericardium/Pleura There is no pericardial effusion. Summary Statements Left ventricular systolic function is normal. Ejection Fraction = 55-60%. The right ventricle is normal in size and function. The left atrium is borderline dilated. There is mild to moderate mitral annular calcification. There is mild mitral regurgitation. There is mild tricuspid regurgitation. There is mild aortic sclerosis.; There is no pericardial effusion. MD Welch *Arie 12/30/2019, 12:07 PM Ordering Physician: Debbie Silvestre Performed By: Yasemin Lawson
--- NOTE | 2019-12-30 13:46 | EKG ---
Test Reason : Blood Pressure : / mmHG Vent. Rate : 090 BPM Atrial Rate : 086 BPM P-R Int : 000 ms QRS Dur : 088 ms QT Int : 376 ms P-R-T Axes : 000 041 062 degrees QTc Int : 459 ms ATRIAL FIBRILLATION NONSPECIFIC ST AND T WAVE ABNORMALITY ABNORMAL ECG WHEN COMPARED WITH ECG OF 30-DEC-2019 00:25, ATRIAL FIBRILLATION HAS REPLACED SINUS RHYTHM NONSPECIFIC T WAVE ABNORMALITY NO LONGER EVIDENT IN ANTERIOR LEADS Confirmed by LILO BELTRAN MD ([id number]) on 12/30/2019 1:46:43 PM Referred By: Confirmed By:LILO BELTRAN MD
--- NOTE | 2019-12-30 13:49 | EKG ---
Test Reason : Blood Pressure : / mmHG Vent. Rate : 065 BPM Atrial Rate : 065 BPM P-R Int : 160 ms QRS Dur : 078 ms QT Int : 436 ms P-R-T Axes : 049 055 068 degrees QTc Int : 453 ms POOR DATA QUALITY, INTERPRETATION MAY BE ADVERSELY AFFECTED SINUS RHYTHM WITH PREMATURE SUPRAVENTRICULAR COMPLEXES NONSPECIFIC T WAVE ABNORMALITY ABNORMAL ECG WHEN COMPARED WITH ECG OF 19-MAY-2015 18:33, PREMATURE SUPRAVENTRICULAR COMPLEXES ARE NOW PRESENT NONSPECIFIC T WAVE ABNORMALITY NOW EVIDENT IN ANTERIOR LEADS Confirmed by LILO BELTRAN MD ([id number]) on 12/30/2019 1:49:16 PM Referred By: Confirmed By:LILO BELTRAN MD
--- NOTE | 2019-12-30 16:15 | CON.NEURO ---
Consult Consult Specialty:: [facility] Referred by:: ER Reason for Consultation:: CVA - History of Present Illness History of Present Illness: 69 years old woman with multiple medical problem madelin santillan with questionalbe time of onset facial droop Patient was tretaed as stroke protocol Patient had Head Ct which was inconclusive Patient was admitted to [facility] stroke unit No recent travek Extensivve cardiac history PMH 1. coronary artery disease 2. diastolic/systolic left ventricular dysfunction 3. mitral valve regurgitation mild to moderate in 4. hypertensive cardiovascular disease/labile blood pressure, 5. [id number] diabetes mellitus, 6. hypercholesterolemia, 7. carotid atherosclerosis 8. 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 [employer] Home Medications - Allergies Allergies/Adverse Reactions: Allergies Allergy/AdvReac Type Severity Reaction Status Date / Time No Known Drug Allergies Allergy Verified 05/19/15 18:27 - Home Medications Home Medications: Ambulatory Orders Atorvastatin Ca [Lipitor] 40 mg PO HS 12/12/11 Diltiazem HCl [Cartia Xt] 120 mg PO DAILY 12/12/11 Glimepiride 10 mg PO BID 12/12/11 Levothyroxine [Synthroid -] 125 mcg PO DAILY 12/12/11 Apixaban [Eliquis] 5 mg PO BID 12/30/19 Dronedarone HCl [Multaq] 400 mg PO BID 12/30/19 Metoprolol Tartrate [Lopressor -] 50 mg PO HS 12/30/19 Sitagliptin Phosphate [Januvia] 100 mg PO HS 12/30/19 Family Medical History Family History: Unable to Obtain Review of Systems - Review of Systems Constitutional: reports: No Symptoms Eyes: reports: No Symptoms Neurological: reports: Headache, Incoordination, Numbness, Parasthesia Physical Exam-Neuro Vital Signs: Vital Signs Temperature 97.7 F 12/30/19 13:21 Pulse Rate 88 12/30/19 13:21 Respiratory Rate 18 12/30/19 13:21 Blood Pressure 122/70 12/30/19 13:21 O2 Sat by Pulse Oximetry (%) 96 12/30/19 13:21 Constitutional: Yes: Well Nourished Neck: Yes: WNL Labs: CBC, BMP 12/30/19 05:40 12/30/19 05:40 INR, PTT INR 1.03 (0.83-1.09) 12/30/19 00:03 - Neuro Exam Level Of Consciousness: Yes: Oriented to Person, Oriented to Place Eyes: Yes: PERRLA Speech: Garbled Dominant Hand: Right Cranial Nerves II-XII Intact: No Gag: Present DTR's: 1+ Left Bicep, 1+ Right Bicep, 1+ Left Tricep, 1+ Right Tricep Response to light touch: Abnormal Response to pain prick: Abnormal Response to temperature: Abnormal Motor Strength: 3/5: Left Arm, Right Arm, Left Leg, Right Leg Gait: Deferred Imaging - Results Cat Scan: Image Reviewed MRI: Image Reviewed Problem List - Problems (1) CVA (cerebral vascular accident) Code(s): I63.9 - CEREBRAL INFARCTION, UNSPECIFIED Qualifiers: CVA mechanism: unspecified Qualified Code(s): I63.9 - Cerebral infarction, unspecified Assessment/Plan 1. Add baby ASA 2. PT 3. Swallow eval 4. Homocysteine level 5. Statin 6. SCD Thank you for [facility] kind referral Prudencio Trevino MD
[2019-12-30] MEDS: APIXABAN 5 MG TABLET PO SCH (21:44)
[2019-12-30] MEDS: ATORVASTATIN CA 80 MG TABLET (FP) PO SCH (21:44)
[2019-12-30] MEDS: INSULIN (LEVEMIR) 100 UNITS/ML UNITS SQ SCH (21:44)
[2019-12-31] MEDS: LEVOTHYROXINE NA 125 MCG TABLET (FP) PO SCH (06:14)
[2019-12-31] MEDS: INSULIN SLIDING SCALE (NOVOLOG) 1 VIAL SQ SCH ×5 (06:15→21:01)
[2019-12-31] MEDS: SODIUM CHLORIDE 1,000 ML IV SCH (07:28)
[2019-12-31 08:59] LABS: BASO % 0.5 % (0-2.0); EOS % 5.4 % (0-4.5); HEMATOCRIT 41.6 % (32.4-45.2); HEMOGLOBIN 14.6 GM/dL (10.7-15.3); LYMPH % 23.4 % (8-40); MCH 31.9 pg (25.7-33.7); MCHC 35.1 g/dl (32.0-36.0); MEAN CELL VOLUME 91.1 fl (80-96); MEAN PLT VOLUME 9.8 fl (7.5-11.1); MONO % 7.7 % (3.8-10.2); PLATELET COUNT 211 K/MM3 (134-434); RBC 4.57 M/mm3 (3.60-5.2); RDW 13.3 % (11.6-15.6)
[2019-12-31] MEDS ORDERED: DEXTROSE 5%-WATER - 50 ML IVPB ONE (09:13)
[2019-12-31] MEDS ORDERED: cefTRIAXone SODIUM 1 GM VIAL ONE (09:13)
[2019-12-31] MEDS ORDERED: PT OWN MED DRAWER 7, Y5N ONE ×4 (09:13→20:23)
[2019-12-31 09:22] LABS: POTASSIUM 4.6 mmol/L (3.5-5.1)
[2019-12-31 09:25] LABS: ALBUMIN 3.4 g/dl (3.4-5.0); BLOOD UREA NITROGEN 14.1 mg/dL (7-18); CALCIUM 9.5 mg/dL (8.5-10.1)
[2019-12-31 09:29] LABS: CREATININE 1.2 mg/dL (0.55-1.3)
[2019-12-31 09:30] LABS: BILIRUBIN,TOTAL 0.9 mg/dL (0.2-1); TOT PROT 6.8 g/dl (6.4-8.2)
--- NOTE | 2019-12-31 09:59 | PN ---
Progress Note, Physician History of Present Illness: 69-year-old female with known history of coronary artery disease status post percutaneous coronary intervention stenting (TONO-LAD 2005 report of intervention not available) negative pharmacologic Dipyridamole myocardial perfusion imaging study for myocardial ischemia/May 20, 2015 negative myocardial perfusion imaging study for myocardial ischemia/May 13, 2017negative pharmacologic Lexiscan myocardial perfusion imaging study for myocardial ischemia/August 30, 2019angina pectoris, diastolic/systolic left ventricular dysfunction with class 0 [employer] classification left ventricular failure (LVEF between 60-65% on echocardiography performed August 24, 2019), paroxysmal atrial fibrillation [id number] score of 5 on anticoagulation therapy with DOACs/Eliquis- antiarrhythmic therapy with Multaq- recurrent asymptomatic arrhythmia noted on extended ambulatory court recording monitor performed August 30, 2018-sinus bradycardia/asymptomatic, mitral valve regurgitation mild to moderate in severity on echocardiography performed May 31, 2018/mild in severity on echocardiography performed August 24, 2019, heart murmur related to aortic valve sclerosis with no evidence of aortic valve stenosis on echocardiography performed April 30, 2017/May 31, 2018/August 24, 2019, tricuspid valve regurgitation mild in severity with calculated RVSP of 31.9 mmHg on echocardiography performed May 21, 2015/RVSP of 33 mmHg on echocardiography performed May 31, 2018/RVSP of 26 mmHg on echocardiography performed August 24, 2019, hypertensive cardiovascular disease/labile blood pressure, [id number] diabetes mellitus, hypercholesterolemia, carotid atherosclerosis mild in severity on carotid Doppler study performed April 22, 2017, peripheral vascular disease insignificant on lower extremity segmental pressures/PVR study performed May 06, 2017, hypothyroidism, chronic kidney disease and degenerative joint disease who was last evaluated in the officeS2019. Since the above evaluation, she presented with left facial droop, dysarthria and transient episode of disequilibrium w/o other focal neuro deficits since resolved. She report worsneing SOB around 8 pm more than her baseline SOB, she reports compliance with Eliquis. Patient denies fall, syncope, head trauma, change in vision, chest pain, abdominal pain, headache, palpitations, fever, chills, nausea, vomiting, diarrhea, constipation, dysuria, frequency, urgency, melena, hematochezia, hematuria, orthopnea, PND or LE edema. Former smoker. Denies alcohol, tobacco or illicit drug use. No sick contacts or recent travels. 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 Patient has a family history of heart disease in her brother. - Current Medication List Current Medications: Active Medications Apixaban (Eliquis -) 5 mg PO BID [facility] Last Admin: 12/30/19 21:44 Dose: 5 mg Documented by: Aspirin (Ecotrin -) 81 mg PO DAILY [facility] Last Admin: 12/30/19 09:42 Dose: 81 mg Documented by: Atorvastatin Calcium (Lipitor -) 80 mg PO HS [facility] Last Admin: 12/30/19 21:44 Dose: 80 mg Documented by: Dronedarone (Multaq -) 400 mg PO BID [facility] Last Admin: 12/30/19 21:44 Dose: 400 mg Documented by: Sodium Chloride (Normal Saline -) 1,000 mls @ 50 mls/hr IV ASDIR [facility] Last Admin: 12/31/19 07:28 Dose: 50 mls/hr Documented by: Ceftriaxone Sodium 1 gm/ (Dextrose) 50 mls @ 100 mls/hr IVPB DAILY [facility]; Protocol Last Admin: 12/30/19 09:43 Dose: 100 mls/hr Documented by: Influenza Virus Vaccine (Flulaval Quad [id number] Syr) 60 mcg IM .ONCE ONE Stop: 12/31/19 10:01 Insulin Aspart (Novolog Vial Sliding Scale -) 1 vial SQ [facility]; Protocol Last Admin: 12/31/19 06:15 Dose: 4 unit Documented by: Insulin Detemir (Levemir Vial) 5 units SQ [facility] Last Admin: 12/30/19 21:44 Dose: 5 units Documented by: Levothyroxine Sodium (Synthroid -) 125 mcg PO ACBK [facility] Last Admin: 12/31/19 06:14 Dose: 125 mcg Documented by: Sitagliptin Phosphate (Januvia -) 100 mg PO ACBK [facility] Last Admin: 12/31/19 06:14 Dose: 100 mg Documented by: - Objective Vital Signs: Vital Signs Temperature 97.7 F 12/31/19 06:00 Pulse Rate 62 12/31/19 06:00 Respiratory Rate 18 12/31/19 06:00 Blood Pressure 144/63 12/31/19 06:00 O2 Sat by Pulse Oximetry (%) 96 12/31/19 06:00 Eyes: Yes: WNL, Conjunctiva Clear, EOM Intact HENT: Yes: WNL, Atraumatic, Normocephalic Neck: Yes: WNL, Supple, Trachea Midline Cardiovascular: Yes: WNL, Regular Rate and Rhythm Respiratory: Yes: WNL, Regular, CTA Bilaterally Gastrointestinal: Yes: WNL, Normal Bowel Sounds Genitourinary: Yes: WNL Musculoskeletal: Yes: WNL Extremities: Yes: WNL Edema: No Integumentary: Yes: WNL Labs: CBC, BMP 12/31/19 08:20 12/31/19 08:20 INR, PTT INR 1.03 (0.83-1.09) 12/30/19 00:03 Assessment/Plan - Problems (1) CVA (cerebral vascular accident) Code(s): I63.9 - CEREBRAL INFARCTION, UNSPECIFIED Qualifiers: CVA mechanism: unspecified Qualified Code(s): I63.9 - Cerebral infarction, unspecified (2) UTI (urinary tract infection) Code(s): N39.0 - URINARY TRACT INFECTION, SITE NOT SPECIFIED Qualifiers: Urinary tract infection type: site unspecified Hematuria presence: without hematuria Qualified Code(s): N39.0 - Urinary tract infection, site not specified (3) CAD (coronary artery disease) Code(s): I25.10 - ATHSCL HEART DISEASE OF [place] CORONARY ARTERY W/O ANG PCTRS Qualifiers: Coronary Disease-Associated Artery/Lesion type: [place] artery [place] vs. transplanted heart: [place] heart Associated angina: without angina Qualified Code(s): I25.10 - Atherosclerotic heart disease of [place] coronary artery without angina pectoris (4) Diabetes mellitus Code(s): E11.9 - TYPE 2 DIABETES MELLITUS WITHOUT COMPLICATIONS Qualifiers: Diabetes mellitus type: type 2 Diabetes mellitus public health advisor insulin use: without public health advisor use Diabetes mellitus complication status: without complication Qualified Code(s): E11.9 - Type 2 diabetes mellitus without complications (5) HTN (hypertension) Code(s): I10 - ESSENTIAL (PRIMARY) HYPERTENSION Qualifiers: Hypertension type: essential hypertension Qualified Code(s): I10 - Essential (primary) hypertension (6) Hyperlipidemia Code(s): E78.5 - HYPERLIPIDEMIA, UNSPECIFIED (7) Hypothyroid Code(s): E03.9 - HYPOTHYROIDISM, UNSPECIFIED Qualifiers: Hypothyroidism type: unspecified Qualified Code(s): E03.9 - Hypothyroidism, unspecified Assessment/Plan 12/30/2019 Echo: Normal LV size and fxn LVEF 55-60%, borderline dilated LA, mild MR, TR 12/30/2019 Carotid US: No stenosis 12/30/2019 Brain MRI: Acute nonhemorrhagic right pontine stroke 12/29/2019 HCT: No acute changes Echocardiography performed August 24, 2019 revealed normal left ventricular size and systolic function with estimated LVEF between 60-65%, moderate left atrial dilatation, normal right ventricular size and systolic function, aortic valve leaflet sclerosis without leaflet restriction, mild mitral valve regurgitation, mild tricuspid valve regurgitation with calculated RVSP of 26 mmHg. Pharmacologic Lexiscan myocardial perfusion imaging study performed August 30, 2019 revealed small size anterior wall defect compatible with soft tissue attenuation/normal variant with normal left ventricular contraction pattern on LV gated analysis and calculated left ventricular ejection fraction of 77% at rest and 71% post Lexiscan infusion. Extended ambulatory court recording monitor performed August 30, 2018 through September 12, 2018 reveals sinus rhythm with paroxysmal atrial fibrillation. Assessment: 1.Dysarthria, disequilibrum and left facial droop referable to acute right pontine stroke 2. UTI 3. Coronary artery disease status post percutaneous coronary intervention stenting negative pharmacologic Dipyridamole myocardial perfusion imaging study for myocardial ischemia/May 20, 2015 negative myocardial perfusion imaging study for myocardial ischemia/May 13, 2017 negative pharmacologic Lexiscan myocardial perfusion imaging study for myocardial ischemia/August 30, 2019 angina pectoris. 4. Diastolic/systolic (resolved systolic left ventricular dysfunction) left ventricular dysfunction with class 0 [employer] Heart Association classification left ventricular failure. 5. Paroxysmal atrial fibrillationcurrently in sinus [id number] score of 7 on chronic anticoagulation therapy with DOACs/Eliquis-antiarrhythmic therapy with Multaq- sinus bradycardia/asymptomatic-history ofrecurrent arrhythmia/asymptomatic. 6. Mitral valve regurgitation mild in severity of no clinical significance. 7. Heart murmur related to aortic valve sclerosis with no evidence of aortic valve stenosis on echocardiography performed April 30, 2017/May 31, 2018/August 24, 2019. 8. Tricuspid valve regurgitation mild in severity with calculated RVSP of 31.9 mmHg on echocardiography performed May 21, 2015/RVSP of 33 mmHg on echocardiography performed May 31, 2018/RVSP of 26 mmHg and echocardiography performed August 24, 2019. 9. Hypertensive cardiovascular disease, near/at goal. 10. Bed-gztuvch-quoptayqt diabetes mellitus. 11. Hypercholesterolemia/hypertriglyceridemia. 12. Carotid atherosclerosis mild in severity, asymptomatic. 13. Peripheral vascular disease mild in severity, asymptomatic. 14. Hypothyroidism. 15. History of chronic kidney disease with intermittent hyperkalemia. 16. History of degenerative joint disease. 17. Exogenous obesity. 18. OTILIO Plan: 1. F/u neuro and S&S evaluation 2. Patient was advised to continue above medical therapy including continuation of anticoagulation therapy indefinitely considering the above-noted [id number] score of 7, recommend addition of ASA 81 qd given stroke despite Eliquis compliance, resumption of Atacand therapy 32 mg once daily (or equivalent) with caution considering the above noted history of chronic kidney disease with intermittent hyperkalemiaand in addition emphasized to the patient importance of compliance to therapy administration. Increased Lipitor 80 qd, continue Cartia XT 120 qd, Multaq 400 bid, Lopressor 50 qd 2. Patient and was advised to obtain periodic follow-up blood test in PMDs office copy of which is to be forwarded. 3. Patient was strongly counseled dietary compliance including salt restriction/caloric restriction, increase ambulation as tolerated and weight reduction. 4. Thank you for consultative opportunity, eventual outpatient f/u with Dr. Iraheta Coverage for dr. Banks
[2019-12-31] MEDS ORDERED: FLU VACCINE (FLULAVAL) PF 60 MCG/0.5 ML SYRINGE 2020-2021 IM ONE (10:00)
[2019-12-31] MEDS: DRONEDARONE HCL 400 MG TAB (FP) PO SCH ×2 (10:03→21:00)
[2019-12-31] MEDS: APIXABAN 5 MG TABLET PO SCH ×2 (10:03→21:00)
[2019-12-31] MEDS: ASPIRIN COATED 81 MG TABLET.EC PO SCH (10:04)
[2019-12-31] MEDS: CEFTRIAXONE 1 GM in DEXTROSE 5%-WATER - 50 ML IVPB SCH (10:15)
--- NOTE | 2019-12-31 16:18 | PN ---
Physical Exam: SUBJECTIVE: Patient seen and examined OBJECTIVE: Patient is a 69 year old woman with PMH afib on eliquis 5 bid, CAD s/p 2 stents, hypertension, hyperlipidemia, diabetes, hypothyroidism, who is presenting with left facial droop and difficulty speaking. Patient was found to have an acute right yanni stroke, non hemorrhagic per brain mri 12/30/2019. Patient agrees to be sent home on a long acting insulin and she will follow up with translator and her PCP on discharge. At this time she rather not start on the short acting as she does not want to inject herself three times per day. She agrees with plan of carb counting/dietary consult and outpatient follow up. she has been advised to reduce risk factors such as monitoring bp, follow diabetic diet, weight loss and lowering her A1c. Vital Signs Period Temp Pulse Resp BP Sys/Strauss Pulse Ox Last 24 Hr 97.6 F-98.2 F 62-98 18-20 129-157/57-82 96-96 GENERAL: The patient is awake, alert, and fully oriented, in no acute distress. HEAD: Normal with no signs of trauma.-mild left facial droop EYES: PERRL, extraocular movements intact, sclera anicteric, conjunctiva clear. No ptosis. ENT: Ears normal, nares patent, oropharynx clear without exudates, moist mucous membranes. NECK: Trachea midline, full range of motion, supple. LUNGS: Breath sounds equal, clear to auscultation bilaterally HEART: Regular rate and rhythm ABDOMEN: Soft, nontender, nondistended, normoactive bowel sounds EXTREMITIES: no edema, equal strength 4/5 arms, 4/5 legs NEUROLOGICAL: left mild facial droop PSYCH: Normal mood, normal affect. SKIN: mild erythema of right [place], mild erythema of right arm Laboratory Results - last 24 hr 12/30/19 12/30/19 12/31/19 06:00 18:09 08:20 WBC 8.0 RBC 4.57 Hgb 14.6 Hct 41.6 MCV 91.1 MCH 31.9 MCHC 35.1 RDW 13.3 Plt Count 211 MPV 9.8 Absolute Neuts (auto) 5.0 Neutrophils % 63.0 Lymphocytes % 23.4 D Monocytes % 7.7 Eosinophils % 5.4 H Basophils % 0.5 Nucleated RBC % 0 Sodium Potassium Chloride Carbon Dioxide Anion Gap BUN Creatinine Est GFR (CKD-EPI)AfAm Est GFR (CKD-EPI)NonAf POC Glucometer 217 Random Glucose Calcium Magnesium Total Bilirubin AST ALT Alkaline Phosphatase Total Protein Albumin COVID-19 (CHEPE) Not detected 12/31/19 12/31/19 08:20 11:43 WBC RBC Hgb Hct MCV MCH MCHC RDW Plt Count MPV Absolute Neuts (auto) Neutrophils % Lymphocytes % Monocytes % Eosinophils % Basophils % Nucleated RBC % Sodium 139 Potassium 4.6 Chloride 104 Carbon Dioxide 26 Anion Gap 9 BUN 14.1 Creatinine 1.2 Est GFR (CKD-EPI)AfAm 53.03 Est GFR (CKD-EPI)NonAf 45.75 POC Glucometer 290 Random Glucose 223 H Calcium 9.5 Magnesium 2.0 Total Bilirubin 0.9 AST 62 H ALT 42 Alkaline Phosphatase 80 Total Protein 6.8 Albumin 3.4 COVID-19 (CHEPE) Active Medications Generic Name Dose Route Start Last Admin Trade Name Freq PRN Reason Stop Dose Admin Apixaban 5 mg 12/30/19 22:00 12/31/19 10:03 Eliquis - PO 5 mg BID YASMIN Administration Aspirin 81 mg 12/30/19 10:00 12/31/19 10:04 Ecotrin - PO 81 mg DAILY YASMIN Administration Atorvastatin Calcium 80 mg 12/30/19 22:00 12/30/19 21:44 Lipitor - PO 80 mg HS YASMIN Administration Cefuroxime Axetil 250 mg 12/31/19 22:00 Ceftin - PO BID YASMIN Diltiazem HCl 120 mg 01/01/20 10:00 Cardizem Cd - PO DAILY YASMIN Dronedarone 400 mg 12/30/19 10:00 12/31/19 10:03 Multaq - PO 400 mg BID YASMIN Administration Insulin Aspart 1 vial 12/30/19 05:14 12/31/19 12:05 Novolog Vial Sliding Scale - SQ 6 unit ACHS YASMIN Administration Protocol Insulin Detemir 5 units 12/30/19 22:00 12/30/19 21:44 Levemir Vial SQ 5 units HS YASMIN Administration Levothyroxine Sodium 125 mcg 12/31/19 07:00 12/31/19 06:14 Synthroid - PO 125 mcg ACBK YASMIN Administration Metoprolol Tartrate 50 mg 12/31/19 22:00 Lopressor - PO HS YASMIN Sitagliptin Phosphate 100 mg 12/31/19 07:00 12/31/19 06:14 Januvia - PO 100 mg ACBK YASMIN Administration ASSESSMENT/PLAN: Problem List - Problems (1) CVA (cerebral vascular accident) Assessment/Plan: CVA confirmed by brain MRI- acute non hemorrhagic infarct of the right yanni patient with mild left facial droop seen by speech and swallow, recommend regulr diet/thin liquids monitor on tele control blood sugars, a1c 10.6 start on insulin on d/c - long acting. pt to follow up with translator to discuss further options on lipitor 80mg for elevated lipids aspirin 81mg daily neurology following physical therapy Code(s): I63.9 - CEREBRAL INFARCTION, UNSPECIFIED Qualifiers: CVA mechanism: unspecified Qualified Code(s): I63.9 - Cerebral infarction, unspecified (2) CAD (coronary artery disease) Assessment/Plan: start on high dose statin therapy Code(s): I25.10 - ATHSCL HEART DISEASE OF [place] CORONARY ARTERY W/O ANG PCTRS Qualifiers: Coronary Disease-Associated Artery/Lesion type: [place] artery [place] vs. transplanted heart: [place] heart Associated angina: without angina Qualified Code(s): I25.10 - Atherosclerotic heart disease of [place] coronary artery without angina pectoris (3) CHF (congestive heart failure) Code(s): I50.9 - HEART FAILURE, UNSPECIFIED (4) Diabetes mellitus Assessment/Plan: uncontrolled DM at 10.9% will need to start on insulin - long acting along with home januvia and glimperpride follow up with endocrinology patient states she is compliant with her home medications Code(s): E11.9 - TYPE 2 DIABETES MELLITUS WITHOUT COMPLICATIONS Qualifiers: Diabetes mellitus type: type 2 Diabetes mellitus exterminator helper insulin use: without senior living use Diabetes mellitus complication status: without complication Qualified Code(s): E11.9 - Type 2 diabetes mellitus without complications (5) HTN (hypertension) Assessment/Plan: monitor bp, restart home meds Code(s): I10 - ESSENTIAL (PRIMARY) HYPERTENSION Qualifiers: Hypertension type: essential hypertension Qualified Code(s): I10 - Essential (primary) hypertension (6) Hyperlipidemia Assessment/Plan: lipid panel reviewed start on lipitor 80mg at hs Code(s): E78.5 - HYPERLIPIDEMIA, UNSPECIFIED (7) Afib Assessment/Plan: rate controlled on eliquis 5 bid on metoprolol and cardizem cardiology following Code(s): I48.91 - UNSPECIFIED ATRIAL FIBRILLATION (8) DVT prophylaxis Assessment/Plan: pt already on [employer] Code(s): Z29.9 - ENCOUNTER FOR PROPHYLACTIC MEASURES, UNSPECIFIED Visit type - Emergency Visit Emergency Visit: Yes ED Registration Date: 12/30/19 Care time: The patient presented to the Emergency Department on the above date and was hospitalized for further evaluation of their emergent condition. - New Patient This patient is new to me today: No - Critical Care Critical Care patient: No - Discharge Referral Referred to [facility] Med P.C[facility] No - Medication Review Med list reviewed for High Risk Meds patients 65 and older: Yes
[2019-12-31] MEDS: CEFUROXIME AXETIL 250 MG TABLET PO SCH (21:00)
[2019-12-31] MEDS: ATORVASTATIN CA 80 MG TABLET (FP) PO SCH (21:00)
[2019-12-31] MEDS: INSULIN (LEVEMIR) 100 UNITS/ML UNITS SQ SCH (21:00)
[2019-12-31] MEDS ORDERED: METOPROLOL TARTRATE 50 MG TABLET (FP) PO SCH (22:00)
[2020-01-01] MEDS: LEVOTHYROXINE NA 125 MCG TABLET (FP) PO SCH (06:19)
[2020-01-01] MEDS: INSULIN SLIDING SCALE (NOVOLOG) 1 VIAL SQ SCH ×2 (06:21→12:09)
[2020-01-01 09:26] LABS: EOS % 7.1 % (0-4.5); HEMATOCRIT 42.8 % (32.4-45.2); HEMOGLOBIN 14.7 GM/dL (10.7-15.3); LYMPH % 25.3 % (8-40); MCH 31.7 pg (25.7-33.7); MCHC 34.4 g/dl (32.0-36.0); MEAN PLT VOLUME 10.2 fl (7.5-11.1); MONO % 7.8 % (3.8-10.2); NEUT % 58.8 % (42.8-82.8); PLATELET COUNT 237 K/MM3 (134-434); RBC 4.65 M/mm3 (3.60-5.2); RDW 13.1 % (11.6-15.6); WHITE BLOOD COUNT 8.4 K/mm3 (4.0-10.0)
[2020-01-01 09:34] LABS: POTASSIUM 4.8 mmol/L (3.5-5.1)
[2020-01-01] MEDS ORDERED: PT OWN MED DRAWER 7, Y5N ONE (09:34)
[2020-01-01] MEDS: APIXABAN 5 MG TABLET PO SCH (09:35)
[2020-01-01] MEDS: CEFUROXIME AXETIL 250 MG TABLET PO SCH (09:35)
[2020-01-01] MEDS: ASPIRIN COATED 81 MG TABLET.EC PO SCH (09:35)
[2020-01-01 09:40] LABS: CALCIUM 9.5 mg/dL (8.5-10.1)
[2020-01-01 09:41] LABS: ALBUMIN 3.5 g/dl (3.4-5.0); BLOOD UREA NITROGEN 21.9 mg/dL (7-18); CREATININE 1.5 mg/dL (0.55-1.3); MAGNESIUM 2.2 mg/dL (1.8-2.4)
[2020-01-01 09:42] LABS: BILIRUBIN,TOTAL 0.5 mg/dL (0.2-1)
[2020-01-01] MEDS: DRONEDARONE HCL 400 MG TAB (FP) PO SCH (09:50)
--- NOTE | 2020-01-01 10:05 | PN ---
Progress Note, Physician History of Present Illness: 69-year-old female with known history of coronary artery disease status post percutaneous coronary intervention stenting (TONO-LAD 2005 report of intervention not available) negative pharmacologic Dipyridamole myocardial perfusion imaging study for myocardial ischemia/May 20, 2015 negative myocardial perfusion imaging study for myocardial ischemia/May 13, 2017negative pharmacologic Lexiscan myocardial perfusion imaging study for myocardial ischemia/August 30, 2019angina pectoris, diastolic/systolic left ventricular dysfunction with class 0 [place] [employer] classification left ventricular failure (LVEF between 60-65% on echocardiography performed August 24, 2019), paroxysmal atrial fibrillation [id number] score of 5 on anticoagulation therapy with DOACs/Eliquis- antiarrhythmic therapy with Multaq- recurrent asymptomatic arrhythmia noted on extended ambulatory dinking machine operator performed August 30, 2018-sinus bradycardia/asymptomatic, mitral valve regurgitation mild to moderate in severity on echocardiography performed May 31, 2018/mild in severity on echocardiography performed August 24, 2019, heart murmur related to aortic valve sclerosis with no evidence of aortic valve stenosis on echocardiography performed April 30, 2017/May 31, 2018/August 24, 2019, tricuspid valve regurgitation mild in severity with calculated RVSP of 31.9 mmHg on echocardiography performed May 21, 2015/RVSP of 33 mmHg on echocardiography performed May 31, 2018/RVSP of 26 mmHg on echocardiography performed August 24, 2019, hypertensive cardiovascular disease/labile blood pressure, [id number] diabetes mellitus, hypercholesterolemia, carotid atherosclerosis mild in severity on carotid Doppler study performed April 22, 2017, peripheral vascular disease insignificant on lower extremity segmental pressures/PVR study performed May 06, 2017, hypothyroidism, chronic kidney disease and degenerative joint disease who was last evaluated in the officeS2019. Since the above evaluation, she presented with left facial droop, dysarthria and transient episode of disequilibrium w/o other focal neuro deficits since resolved. She report worsneing SOB around 8 pm more than her baseline SOB, she reports compliance with Eliquis. Patient denies fall, syncope, head trauma, change in vision, chest pain, abdominal pain, headache, palpitations, fever, chills, nausea, vomiting, diarrhea, constipation, dysuria, frequency, urgency, melena, hematochezia, hematuria, orthopnea, PND or LE edema. Former smoker. Denies alcohol, tobacco or illicit drug use. No sick contacts or recent travels. 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 Patient has a family history of heart disease in her brother. - Current Medication List Current Medications: Active Medications Apixaban (Eliquis -) 5 mg PO BID [facility] Last Admin: 01/01/20 09:35 Dose: 5 mg Documented by: Aspirin (Ecotrin -) 81 mg PO DAILY [facility] Last Admin: 01/01/20 09:35 Dose: 81 mg Documented by: Atorvastatin Calcium (Lipitor -) 80 mg PO [facility] Last Admin: 12/31/19 21:00 Dose: 80 mg Documented by: Cefuroxime Axetil (Ceftin -) 250 mg PO BID [facility] Last Admin: 01/01/20 09:35 Dose: 250 mg Documented by: Diltiazem HCl (Cardizem Cd -) 120 mg PO DAILY [facility] Last Admin: 01/01/20 09:36 Dose: 120 mg Documented by: Dronedarone (Multaq -) 400 mg PO BID [facility] Last Admin: 01/01/20 09:50 Dose: 400 mg Documented by: Insulin Aspart (Novolog Vial Sliding Scale -) 1 vial SQ [facility]; Protocol Last Admin: 01/01/20 06:21 Dose: 4 unit Documented by: Insulin Detemir (Levemir Vial) 5 units SQ [facility] Last Admin: 12/31/19 21:00 Dose: 5 units Documented by: Levothyroxine Sodium (Synthroid -) 125 mcg PO [facility] Last Admin: 01/01/20 06:19 Dose: 125 mcg Documented by: Metoprolol Tartrate (Lopressor -) 50 mg PO [facility] Last Admin: 12/31/19 21:00 Dose: 50 mg Documented by: Sitagliptin Phosphate (Januvia -) 100 mg PO [facility] Last Admin: 01/01/20 06:19 Dose: 100 mg Documented by: - Objective Vital Signs: Vital Signs Temperature 97.7 F 01/01/20 06:00 Pulse Rate 54 L 01/01/20 06:00 Respiratory Rate 18 01/01/20 06:00 Blood Pressure 118/59 L 01/01/20 06:00 O2 Sat by Pulse Oximetry (%) 96 01/01/20 09:00 Eyes: Yes: WNL, Conjunctiva Clear, EOM Intact HENT: Yes: WNL, Atraumatic, Normocephalic Neck: Yes: WNL, Supple, Trachea Midline Cardiovascular: Yes: WNL, Regular Rate and Rhythm Respiratory: Yes: WNL, Regular, CTA Bilaterally Gastrointestinal: Yes: WNL, Normal Bowel Sounds Genitourinary: Yes: WNL Musculoskeletal: Yes: WNL Extremities: Yes: WNL Edema: No Integumentary: Yes: WNL Labs: CBC, BMP 01/01/20 09:11 01/01/20 09:11 INR, PTT INR 1.03 (0.83-1.09) 12/30/19 00:03 Assessment/Plan - Problems (1) CVA (cerebral vascular accident) Code(s): I63.9 - CEREBRAL INFARCTION, UNSPECIFIED Qualifiers: CVA mechanism: unspecified Qualified Code(s): I63.9 - Cerebral infarction, unspecified (2) UTI (urinary tract infection) Code(s): N39.0 - URINARY TRACT INFECTION, SITE NOT SPECIFIED Qualifiers: Urinary tract infection type: site unspecified Hematuria presence: without hematuria Qualified Code(s): N39.0 - Urinary tract infection, site not specified (3) CAD (coronary artery disease) Code(s): I25.10 - ATHSCL HEART DISEASE OF [place] CORONARY ARTERY W/O ANG PCTRS Qualifiers: Coronary Disease-Associated Artery/Lesion type: [place] artery [place] vs. transplanted heart: [place] heart Associated angina: without angina Qualified Code(s): I25.10 - Atherosclerotic heart disease of [place] coronary artery without angina pectoris (4) Diabetes mellitus Code(s): E11.9 - TYPE 2 DIABETES MELLITUS WITHOUT COMPLICATIONS Qualifiers: Diabetes mellitus type: type 2 Diabetes mellitus alf insulin use: [facility] remote computer terminal operator use Diabetes mellitus complication status: without compli cation Qualified Code(s): E11.9 - Type 2 diabetes mellitus without compli cations (5) HTN (hypertension) Code(s): I10 - ESSENTIAL (PRIMARY) HYPERTENSION Qualifiers: Hypertension type: essential hypertension Qualified Code(s): I10 - Essential (primary) hypertension (6) Hyperlipidemia Code(s): E78.5 - HYPERLIPIDEMIA, UNSPECIFIED (7) Hypothyroid Code(s): E03.9 - HYPOTHYROIDISM, UNSPECIFIED Qualifiers: Hypothyroidism type: unspecified Qualified Code(s): E03.9 - Hypothyroidism, unspecified Assessment/Plan 12/30/2019 Echo: Normal LV size and fxn LVEF 55-60%, borderline dilated LA, mild MR, TR 12/30/2019 Carotid US: No stenosis 12/30/2019 Brain MRI: Acute nonhemorrhagic right pontine stroke 12/29/2019 HCT: No acute changes Echocardiography performed August 24, 2019 revealed normal left ventricular size and systolic function with estimated LVEF between 60-65%, moderate left atrial dilatation, normal right ventricular size and systolic function, aortic valve leaflet sclerosis without leaflet restriction, mild mitral valve regurgitation, mild tricuspid valve regurgitation with calculated RVSP of 26 mmHg. Pharmacologic Lexiscan myocardial perfusion imaging study performed August 29 0 revealed small size anterior wall defect compatible with soft tissue attenuation/normal variant with normal left ventricular contraction pattern on LV gated analysis and calculated left ventricular ejection fraction of 77% at rest and 71% post Lexiscan infusion. Extended ambulatory dinking machine operator performed August 30, 2018 through September 12, 2018 reveals sinus rhythm with paroxysmal atrial fibrillation. Assessment: 1.Dysarthria, disequilibrum and left facial droop referable to acute right pontine stroke 2. UTI 3. Coronary artery disease status post percutaneous coronary intervention stenting negative pharmacologic Dipyridamole myocardial perfusion imaging study for myocardial ischemia/May 20, 2015 negative myocardial perfusion imaging study for myocardial ischemia/May 13, 2017 negative pharmacologic Lexiscan myocardial perfusion imaging study for myocardial ischemia/August 30, 2019 angina pectoris. 4. Diastolic/systolic (resolved systolic left ventricular dysfunction) left ventricular dysfunction with class 0 [place] Heart Association classification left ventricular failure. 5. Paroxysmal atrial fibrillationcurrently in sinus [id number] score of 7 on chronic anticoagulation therapy with DOACs/Eliquis-antiarrhythmic therapy with Multaq- sinus bradycardia/asymptomatic-history ofrecurrent arrhythmia/asymptomatic. 6. Mitral valve regurgitation mild in severity of no clinical significance. 7. Heart murmur related to aortic valve sclerosis with no evidence of aortic valve stenosis on echocardiography performed April 30, 2017/May 31, 2018/August 24, 2019. 8. Tricuspid valve regurgitation mild in severity with calculated RVSP of 31.9 mmHg on echocardiography performed May 21, 2015/RVSP of 33 mmHg on echocardiography performed May 31, 2018/RVSP of 26 mmHg and echocardiography performed August 24, 2019. 9. Hypertensive cardiovascular disease, near/at goal. 10. Rrh-bqtemnf-usosshbgy diabetes mellitus. 11. Hypercholesterolemia/hypertriglyceridemia. 12. Carotid atherosclerosis mild in severity, asymptomatic. 13. Peripheral vascular disease mild in severity, asymptomatic. 14. Hypothyroidism. 15. History of chronic kidney disease with intermittent hyperkalemia. 16. History of degenerative joint disease. 17. Exogenous obesity. 18. OTILIO Plan: 1. F/u neuro and S&S evaluation 2. Patient was advised to continue above medical therapy including continuation of anticoagulation therapy indefinitely considering the above-noted [id number] score of 7, recommend addition of ASA 81 qd given stroke despite Eliquis compliance, resumption of Atacand therapy 32 mg once daily (or equivalent) with caution considering the above noted history of chronic kidney disease with intermittent hyperkalemiaand in addition emphasized to the patient importance of compliance to therapy administration. Increased Lipitor 80 qd, continue Cartia XT 120 qd, Multaq 400 bid, Lopressor 50 qd 2. Patient and was advised to obtain periodic follow-up blood test in PMDs office copy of which is to be forwarded. 3. Patient was strongly counseled dietary compliance including salt restriction/caloric restriction, increase ambulation as tolerated and weight reduction. 4. Thank you for consultative opportunity, eventual outpatient f/u with Dr. Iraheta Coverage for dr. Banks
[2020-01-01 13:03] VITALS: BMI 35.5
--- NOTE | 2020-01-01 14:36 | DS ---
Physical Exam: SUBJECTIVE: Patient seen and examined. She tells me that she has a new lease on life and wants to take better care of herself. She understands that her risk factors for stroke have to be controlled. She is also having additional stress with family issues. she agrees to follow up with safety advisor and PCP. She is interested on devices that will help her minimize her need for fingersticks but she is willing to give her self Levemir and check her BGMs. OBJECTIVE: Patient is a 69 year old woman with PMH afib on eliquis 5 bid, CAD s/p 2 stents, hypertension, hyperlipidemia, diabetes, hypothyroidism, who presented to the ED on 12/30/2019 with left facial droop and difficulty speaking that her daughter noticed at home. In the ED, focal findings concerning for CVA, and a code hernandez called. Head CT without acute findings. Not a TPA candidate as she is on Eliquis and questionable timing for symptom onset. Patient was found to have an acute right yanni stroke, non hemorrhagic per brain mri 12/30/2019. During hospitalization she was evaluated by the cardiology and neurology speciality. She was allowed permissive hypertension. Her cardiac medications have been restarted. She was evaluated by speech and swallow who recommended a regular consistency diet with thin liquids. Physical therapy evaluated and patient successfully ambulated 200 feet without any deficits. She has mild facial droop which has improved since admission. Patient noted to have uncontrolled diabetes and she will be sent home with a long acting insulin (Lantus 5 units). Suspect that she will need a short acting insulin to lower her A1c which is currently at 10.9%. At this time, she is refusing short term insulin as she does not want to inject herself three times per day. She agrees to follow up with Dr. Blankenship (safety advisor) as an outpatient. She agrees to modify her lifestyle which includes following a diabetic diet, weight loss and outpatient follow up. SEE PROBLEM LIST BELOW. Vital Signs Period Temp Pulse Resp BP Sys/Strauss Pulse Ox Last 24 Hr 97.7 F-98.8 F 54-112 18-20 118-149/59-88 95-100 PHYSICAL EXAM GENERAL: The patient is awake, alert, and fully oriented, in no acute distress. HEAD: Normal with no signs of trauma.-mild left facial droop EYES: PERRL, extraocular movements intact, sclera anicteric, conjunctiva clear. No ptosis. ENT: Ears normal, nares patent, oropharynx clear without exudates, moist mucous membranes. NECK: Trachea midline, full range of motion, supple. LUNGS: Breath sounds equal, clear to auscultation bilaterally HEART: Regular rate and rhythm ABDOMEN: Soft, nontender, nondistended, normoactive bowel sounds EXTREMITIES: no edema, equal strength 5/5 arms, 5/5 legs NEUROLOGICAL: left mild facial droop PSYCH: Normal mood, normal affect. SKIN: mild erythema of right dun[place], mild erythema of right arm LABS Laboratory Results - last 24 hr 12/31/19 12/31/19 01/01/20 17:06 20:51 09:11 WBC 8.4 RBC 4.65 Hgb 14.7 Hct 42.8 MCV 92.0 MCH 31.7 MCHC 34.4 RDW 13.1 Plt Count 237 MPV 10.2 Absolute Neuts (auto) 4.9 Neutrophils % 58.8 Lymphocytes % 25.3 Monocytes % 7.8 Eosinophils % 7.1 H Basophils % 1.0 Nucleated RBC % 0 Sodium Potassium Chloride Carbon Dioxide Anion Gap BUN Creatinine Est GFR (CKD-EPI)AfAm Est GFR (CKD-EPI)NonAf POC Glucometer 196 202 Random Glucose Calcium Magnesium Total Bilirubin AST ALT Alkaline Phosphatase Total Protein Albumin 01/01/20 09:11 WBC RBC Hgb Hct MCV MCH MCHC RDW Plt Count MPV Absolute Neuts (auto) Neutrophils % Lymphocytes % Monocytes % Eosinophils % Basophils % Nucleated RBC % Sodium 137 Potassium 4.8 Chloride 104 Carbon Dioxide 26 Anion Gap 7 L BUN 21.9 H Creatinine 1.5 H Est GFR (CKD-EPI)AfAm 40.49 Est GFR (CKD-EPI)NonAf 34.93 POC Glucometer Random Glucose 273 H Calcium 9.5 Magnesium 2.2 Total Bilirubin 0.5 AST 55 H ALT 42 Alkaline Phosphatase 79 Total Protein 7.0 Albumin 3.5 HOSPITAL COURSE: Date of Admission:12/30/19 Date of Discharge: 01/01/20 Minutes to complete discharge: 60 Discharge Summary Problems reviewed: Yes Reason For Visit: UTI,CVA Current Active Problems Afib (Acute) CVA (cerebral vascular accident) (Acute) DVT prophylaxis (Acute) UTI (urinary tract infection) (Acute) Condition: Stable - Instructions Diet, Activity, Other Instructions: DISCHARGE YOUR VISIT You came to the hospital because your speech was slurred and the left side of the face was droopy. We did an MRI of your brain and it shows that you had an acute stroke to the right side of your brain which affects the left side of your body. Prevention is tucker and the goal is to minimize your risk factors. MEDICATIONS START ASPIRIN 81mg ONCE per day START Lipitor 80mg ONCE per day at bedtime START Lantus 5 units every morning - this is a LONG acting insulin. You will need to follow up with the safety advisor we referred you to. CONTINUE CEFTIN 250MG twice PER DAY FOR 3 MORE DAYS FOR UTI CONTINUE all your other home medications as outlined in this discharge paper work CHECK YOUR BLOOD SUGARS 15 MINUTES BEFORE MEALS. THIS IS THE ONLY WAY WE WILL KNOW IF THE LANTUS IS HELPING YOU. You may need it increased or your doctor may prescribe a SHORT acting insulin DIET Continue a diabetic diet. ADDITIONAL INFORMATION Please call 911 or come directly to the emergency department if you experience unusual headache, vision change, shortness of breath, chest pain, numbness, tingling, loss of alertness/awareness, loss of function, unusual bleeding or any alarming symptoms. Thank you for allowing us to care for you. Referrals: Deacon Blankenship MD [Staff Physician] - 1 Week Prudencio Trevino MD [Staff Physician] - 1 Week Maximo Rios MD [Primary Care Provider] - 1 Week Disposition: VNS/HOME HEALTH CARE - Home Medications Comprehensive Discharge Medication List: Ambulatory Orders Diltiazem HCl [Cartia Xt] 120 mg PO DAILY 12/12/11 Glimepiride 10 mg PO BID 12/12/11 Levothyroxine [Synthroid -] 125 mcg PO DAILY 12/12/11 Apixaban [Eliquis] 5 mg PO BID 12/30/19 Dronedarone HCl [Multaq] 400 mg PO BID 12/30/19 Metoprolol Tartrate [Lopressor -] 50 mg PO HS 12/30/19 Sitagliptin Phosphate [Januvia] 100 mg PO HS 12/30/19 Alcohol Antiseptic Pads [Alcohol Prep Pad] 1 each SQ TID #1 box 12/31/19 Lancets [Lancets Thin] 1 each MC TID #1 box 12/31/19 Miscellaneous Medical Supply [Glucometer Device] 1 each SQ ASDIR #1 kit 10/17/20 Miscellaneous Medical Supply [Glucometer Test Strips #100] 1 each SQ ASDIR #1 box 12/31/19 Apixaban [Eliquis -] 5 mg PO BID tablet 01/01/20 Aspirin Coated [Ecotrin -] 81 mg PO DAILY #60 tablet.ec 01/01/20 Atorvastatin Ca [Lipitor] 80 mg PO HS #60 tablet 01/01/20 Cefuroxime Axetil [Ceftin -] 250 mg PO BID #6 tablet 01/01/20 Insulin Glargine,Hum.rec.anlog [Lantus Solostar PEN (NF)] 5 units SQ HS #1 pen 01/01/20 Syrge-Ndl,Ins 0.3 ml Half Jason [Insulin Syringe] 1 each MC TID #1 box 01/01/20 Problem List - Problems (1) CVA (cerebral vascular accident) Assessment/Plan: CVA confirmed by brain MRI- acute non hemorrhagic infarct of the right yanni patient with mild left facial droop seen by speech and swallow, recommend regulr diet/thin liquids followed by neurology and cardiology control blood sugars, a1c 10.6 start on insulin on d/c - long acting. pt to follow up with safety advisor to discuss further options on lipitor 80mg for elevated lipids aspirin 81mg daily Code(s): I63.9 - CEREBRAL INFARCTION, UNSPECIFIED Qualifiers: CVA mechanism: unspecified Qualified Code(s): I63.9 - Cerebral infarction, unspecified (2) CAD (coronary artery disease) Assessment/Plan: start on high dose statin therapy Code(s): I25.10 - ATHSCL HEART DISEASE OF [place] CORONARY ARTERY W/O ANG PCTRS Qualifiers: Coronary Disease-Associated Artery/Lesion type: [place] artery [place] vs. transplanted heart: [place] heart Associated angina: without angina Qualified Code(s): I25.10 - Atherosclerotic heart disease of [place] coronary artery without angina pectoris (3) CHF (congestive heart failure) Code(s): I50.9 - HEART FAILURE, UNSPECIFIED (4) Diabetes mellitus Assessment/Plan: uncontrolled DM at 10.9% will need to start on insulin - long acting along with home januvia and glimperpride follow up with endocrinology patient states she is compliant with her home medications Code(s): E11.9 - TYPE 2 DIABETES MELLITUS WITHOUT COMPLICATIONS Qualifiers: Diabetes mellitus type: type 2 Diabetes mellitus intermediate insulin use: without intermediate use Diabetes mellitus complication status: without complication Qualified Code(s): E11.9 - Type 2 diabetes mellitus without complications (5) HTN (hypertension) Assessment/Plan: monitor bp, restart home meds Code(s): I10 - ESSENTIAL (PRIMARY) HYPERTENSION Qualifiers: Hypertension type: essential hypertension Qualified Code(s): I10 - [place] l (primary) hypertension (6) Hyperlipidemia Assessment/Plan: lipid panel reviewed start on lipitor 80mg at hs Code(s): E78.5 - HYPERLIPIDEMIA, UNSPECIFIED (7) Afib Assessment/Plan: rate controlled on eliquis 5 bid on metoprolol and cardizem cardiology following Code(s): I48.91 - UNSPECIFIED ATRIAL FIBRILLATION (8) DVT prophylaxis Assessment/Plan: Code(s): Z29.9 - ENCOUNTER FOR PROPHYLACTIC MEASURES, UNSPECIFIED This patient is new to me today: No Emergency Visit: Yes ED Registration Date: 12/30/19 Care time: The patient presented to the Emergency Department on the above date and was hospitalized for further evaluation of their emergent condition. Critical Care patient: No - Discharge Referral Referred to [facility] No
[2020-01-01 14:44] VITALS: PULSE 65; TEMP 98.1
[2020-01-01 16:20] VITALS: BP 128/80
== END 2020-01-01 16:08 | disposition home or self-care (01) | DRG 65 ==
LOC: JER 23:14 → JERBED 12-30 02:56 → J4S 12-30 20:10
PROVIDERS: ADMIT Internal Medicine; ATTEND Nurse Practitioner Family
DX: I63.9 Cerebral infarction, unspecified (principal); N17.9 Acute kidney failure, unspecified; N39.0 Urinary tract infection, site not specified; I50.40 Unspecified combined systolic (congestive) and diastolic (congestive) heart failure; E03.9 Hypothyroidism, unspecified; I11.0 Hypertensive heart disease with heart failure; E78.5 Hyperlipidemia, unspecified; R47.1 Dysarthria and anarthria; E11.65 Type 2 diabetes mellitus with hyperglycemia; I25.10 Atherosclerotic heart disease of native coronary artery without angina pectoris; Z95.5 Presence of coronary angioplasty implant and graft; I48.0 Paroxysmal atrial fibrillation; I73.9 Peripheral vascular disease, unspecified; E66.01 Morbid (severe) obesity due to excess calories; Z68.35 Body mass index [BMI] 35.0-35.9, adult
CPT/HCPCS: 36415; 70450-TC; 70551-TC; 71046-TC-FY; 80053; 80061; 81003; 82550; 82565; 82962; 83036; 83721; 83735; 84100; 84156; 84439; 84443; 84484; 85025; 85610; 85730; 86850; 86900; 86901; 93005; 93010; 93306-TC; 93880-TC; 97116-GP; 99285-25; C9803; Q2036; U0003

== ENCOUNTER 2021-06-30 08:12 | Emergency (ER) | payer OTHER, BC ==
[2021-06-30 08:18] VITALS: BP 176/78; PULSE 58; TEMP 97.7; BMI 34.2
[2021-06-30] MEDS ORDERED: IBUPROFEN 600 MG TABLET (FP) PO ONE ×2 (11:05→11:08)
[2021-06-30] MEDS ORDERED: BACITRACIN 15 GM TUBE TOPICAL OINTMENT ONE (11:07)
== END 2021-06-30 11:30 | disposition home or self-care (01) ==
LOC: JER 08:12
DX: S52.592A Other fractures of lower end of left radius, initial encounter for closed fracture (principal); S09.90XA Unspecified injury of head, initial encounter; W01.0XXA Fall on same level from slipping, tripping and stumbling without subsequent striking against object, initial encounter
CPT/HCPCS: 70450-TC; 70486-TC; 73110-TC-LT-FY; 73110-TC-RT-FY; 73130-TC-LT-FY; 73130-TC-RT-FY; 99284-25